=== PATIENT | female | born 1945 | race Caucasian/White ===

== ENCOUNTER 2017-01-13 07:48 | Inpatient (IN) | payer MEDICARE, OTHER ==
[2017-01-13] MEDS ORDERED: Sodium Chloride 0.9% 500 ML IV ONE (08:23)
[2017-01-13] MEDS ORDERED: Sodium Chloride 0.9% 10 ML Syringe FLUSH PRN (08:24)
--- NOTE | 2017-01-13 08:57 | EDM.PDOC ---
ED HPI RENAL/ - General Chief Complaint: Genitourinary Problem Stated Complaint: BLOOD IN URINE/CATH BAG Time Seen by Provider: 01/13/17 08:11 Source of Information: Reports: Patient, RN notes reviewed - History of Present Illness INITIAL COMMENTS - FREE TEXT/NARRATIVE: 71-year-old female comes in with hematuria. She does have an indwelling Feldman catheter status post aortic aneurysm repair 6 days ago. This was done endovascular with access right groin and both arms. She was discharged home 3 days ago and due to voiding difficulty while in the hospital discharged home with indwelling Feldman catheter. She states she does have some bladder irritation and occasional spasm with the catheter. She states she did have some chills yesterday. She arrives this morning with low-grade fever but she had not been aware of running fever. She has been drinking fluids okay. Appetite has been poor but starting to supervisor opening and picking a little bit. No major nausea no recent vomiting. No chest pain or difficulty breathing. She states she does have a chronic cough and has had that for about 2 months. She is a former smoker having just quit at about the time of her surgery. Cough is mostly nonproductive but occasionally some colored phlegm. - Related Data Allergies/ADRs: Allergies Allergy/AdvReac Type Severity Reaction Status Date / Time iodine Allergy Rash Verified 01/13/17 08:02 Home Meds: Home Meds Aspirin [[place] Aspirin] 81 mg PO DAILY 01/13/17 [History] Bisacodyl [Dulcolax] 10 mg RECTAL DAILY PRN 01/13/17 [History] Clopidogrel [Plavix] 75 mg PO DAILY 01/13/17 [History] Docusate Sodium [Colace] 100 - 300 mg PO DAILY PRN 01/13/17 [History] Lisinopril/Hydrochlorothiazide [Lisinopril-Hctz 10-12.5 mg Tab] 1 tab PO DAILY 01/13/17 [History] Pantoprazole [ProTONIX] 40 mg PO DAILY 01/13/17 [History] Ventolin Hfa. 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 Like I just lay in bed and think I don't care what gets done with me." - Infectious Disease History Infectious Disease History: Reports: Chicken pox, Measles, Mumps - Past Surgical History Cardiovascular Surgical History: Reports: Aneurysm Female Surgical History: Reports: Oophorectomy, Other (see below) Other Female Surgeries/Procedures: Patient also states "I think they took a fallopian tube or part of one too" Social & Family History - Family History Family Medical History: Noncontributory - Tobacco Use Smoking Status *Q: Former Smoker Years of Tobacco use: 55 Packs/Tins Daily: 2 Used Tobacco, but Quit: Yes Month Tobacco Last Used: December 2016 - Caffeine Use Caffeine Use: Reports: Coffee Caffeine Use Comment: Everyday - Recreational Drug Use Recreational Drug Use: No ED ROS GENERAL - Review of Systems Review Of Systems: See Below Constitutional: Reports: fever (Patient's low-grade fever on arrival to ED), chills HEENT: Denies: Sinus problem, Throat pain Respiratory: Reports: Cough, Sputum. Denies: Shortness of Breath, Wheezing, Pleuritic Chest Pain Cardiovascular: Denies: Chest pain GI/Abdominal: Reports: Abdominal pain (Mild postsurgical soreness). Denies: Vomiting : Reports: hematuria (Started early this morning and continues on arrival to ED), urinary retention (Patient has indwelling Feldman catheter) Musculoskeletal: Denies: back pain Neurological: Reports: Weakness (Mild generalized). Denies: Dizziness, Headache , Numbness, Tingling, Trouble Speaking ED EXAM, RENAL/ - Physical Exam Exam: See Below Exam Limited By: No limitations General Appearance: alert, no apparent distress Eye Exam: bilateral eye: PERRL Ears: normal external exam Nose: normal inspection Throat/Mouth: Normal inspection, Normal oropharynx Head: atraumatic. No: facial swelling Neck: supple, full range of motion Respiratory/Chest: no respiratory distress, lungs clear, normal breath sounds. No: rhonchi, wheezing Cardiovascular: regular rate, rhythm GI/Abdominal: soft, other (Very mild lower mid abdominal tenderness) Back Exam: No: CVA tenderness (L), CVA tenderness (R) Extremities: normal inspection. No: normal range of motion, pedal edema, leg pain Neurological: alert, oriented, no motor/sensory deficits Skin Exam: Warm, Dry, Normal color Course - Vital Signs Last Recorded V/S: Last Vital Signs Temp 100.3 F 01/13/17 07:53 Pulse 92 01/13/17 07:53 Resp 16 01/13/17 07:53 BP 138/66 01/13/17 07:53 Pulse Ox 100 01/13/17 07:53 - Orders/Labs/Meds Orders: Active Orders 24 hr Category Date Time Status Admission Status [Patient Status] [ADT] Routine ADT 01/13/17 12:21 Active Peripheral IV Care [RC] . DIRECTED Care 01/13/17 08:24 Active CULTURE BLOOD [BC] Stat Lab 01/13/17 08:40 Received CULTURE URINE [RM] Stat Lab 01/13/17 08:56 Received Sodium Chloride 0.9% [Normal Saline] 1,000 ml Med 01/13/17 10:15 Active IV ASDIRECTED Sodium Chloride 0.9% [Saline Flush] Med 01/13/17 08:24 Active 10 ml FLUSH ASDIRECTED PRN Peripheral IV Insertion Adult [OM.PC] Stat Oth 01/13/17 08:23 Ordered Medication Orders Sodium Chloride (Normal Saline) 1,000 mls @ 150 mls/hr IV ASDIRECTED MERVAT Last Admin: 01/13/17 10:17 Dose: 150 mls/hr Sodium Chloride (Saline Flush) 10 ml FLUSH ASDIRECTED PRN PRN Reason: Keep Vein Open Last Admin: 01/13/17 08:40 Dose: 10 ml Labs: Laboratory Tests 01/13/17 01/13/17 01/13/17 Range/Units 08:40 08:40 08:56 WBC 9.90 (3.98-10.04) K/mm3 RBC 2.78 L (3.98-5.22) M/mm3 Hgb 8.4 L (11.2-15.7) gm/L Hct 25.1 L (34.1-44.9) % MCV 90.3 (79.4-94.8) fl MCH 30.2 (25.6-32.2) pg MCHC 33.5 (32.2-35.5) g/dl RDW Std Deviation 40.5 (36.4-46.3) fL Plt Count 263 (182-369) K/mm3 MPV 10.3 (9.4-12.3) fl Neut % (Auto) 76.7 H (34.0-71.1) % Lymph % (Auto) 13.1 L (19.3-51.7) % [place] % (Auto) 6.9 (4.7-12.5) % Eos % (Auto) 2.4 (0.7-5.8) Baso % (Auto) 0.3 (0.1-1.2) % Neut # (Auto) 7.59 H (1.56-6.13) K/mm3 Lymph # (Auto) 1.30 (1.18-3.74) K/mm3 [place] # (Auto) 0.68 H (0.24-0.36) K/mm3 Eos # (Auto) 0.24 (0.04-0.36) K/mm3 Baso # (Auto) 0.03 (0.01-0.08) K/mm3 Sodium 137 (136-145) mEq/L Potassium 3.7 (3.5-5.1) mEq/L Chloride 100 (98-107) mEq/L Carbon Dioxide 25 (21-32) mEq/L Anion Gap 15.7 H (5-15) BUN 17 (7-18) mg/dL Creatinine 1.1 H (0.55-1.02) mg/dL Est Cr Clr Drug Dosing 32.72 mL/min Estimated GFR (MDRD) 49 (>60) mL/min BUN/Creatinine Ratio 15.5 (14-18) Glucose 108 (83-115) mg/dL Calcium 8.9 (8.5-10.1) mg/dL Total Bilirubin 0.5 (0.2-1.0) mg/dL AST 34 (15-37) U/L ALT 43 (14-59) U/L Alkaline Phosphatase 67 (46-116) U/L C-Reactive Protein 12.1 H* (<1.0) mg/dL Total Protein 6.7 (6.4-8.2) g/dl Albumin 2.8 L (3.4-5.0) g/dl Globulin 3.9 gm/dL Albumin/Globulin Ratio 0.7 L (1-2) Urine Color Red H (Yellow) Urine Appearance Cloudy H (Clear) Urine pH 7.0 (5.0-8.0) Ur Specific [place] 1.020 (1.005-1.030) Urine Protein 3+ H (Negative) Urine Glucose (UA) Negative (Negative) Urine Ketones Negative (Negative) Urine Occult Blood 3+ H (Negative) Urine Nitrite Positive H (Negative) Urine Bilirubin 1+ H (Negative) Urine Urobilinogen 1.0 (0.2-1.0) Ur Leukocyte Esterase 3+ H (Negative) Meds: Medications Generic Name Dose Route Start Last Admin Trade Name Freq PRN Reason Stop Dose Admin Sodium Chloride 1,000 mls @ 150 mls/hr 01/13/17 10:15 01/13/17 10:17 Normal Saline IV 150 mls/hr ASDIRECTED MERVAT Administration Sodium Chloride 10 ml 01/13/17 08:24 01/13/17 08:40 Saline Flush FLUSH 10 ml ASDIRECTED PRN Administration Keep Vein Open Discontinued Medications Generic Name Dose Route Start Last Admin Trade Name Freq PRN Reason Stop Dose Admin Sodium Chloride 500 mls @ 999 mls/hr 01/13/17 08:23 01/13/17 08:44 Normal Saline IV 01/13/17 08:53 999 mls/hr .BOLUS ONE Administration Ceftriaxone Sodium 1 gm/ 100 mls @ 200 mls/hr 01/13/17 10:07 01/13/17 10:30 Sodium Chloride IV 01/13/17 10:36 Not Given ONETIME ONE Ceftriaxone Sodium 1 gm/ 100 mls @ 200 mls/hr 01/13/17 10:18 01/13/17 10:28 Sodium Chloride IV 01/13/17 10:47 200 mls/hr ONETIME ONE Administration Departure - Departure Time of Disposition: 12:15 Disposition: Admitted As Inpatient 64 Condition: serious Clinical Impression: Pyelonephritis ED Communication - Discussed Case With (1) Discussed Case With (1): Admitting Provider (Dr Hobson, decision to admit at about 12:12.) - My Orders Last 24 Hours: My Active Orders 01/13/17 08:23 Peripheral IV Insertion Adult [OM.PC] Stat 01/13/17 08:24 Peripheral IV Care [RC] . DIRECTED Sodium Chloride 0.9% [Saline Flush] 10 ml FLUSH ASDIRECTED PRN 01/13/17 08:40 CULTURE BLOOD [BC] Stat 01/13/17 08:56 CULTURE URINE [RM] Stat 01/13/17 10:15 Sodium Chloride 0.9% [Normal Saline] 1,000 ml IV ASDIRECTED 01/13/17 12:21 Admission Status [Patient Status] [ADT] Routine - Assessment/Plan Last 24 Hours: My Active Orders 01/13/17 08:23 Peripheral IV Insertion Adult [OM.PC] Stat 01/13/17 08:24 Peripheral IV Care [RC] . DIRECTED Sodium Chloride 0.9% [Saline Flush] 10 ml FLUSH ASDIRECTED PRN 01/13/17 08:40 CULTURE BLOOD [BC] Stat 01/13/17 08:56 CULTURE URINE [RM] Stat 01/13/17 10:15 Sodium Chloride 0.9% [Normal Saline] 1,000 ml IV ASDIRECTED 01/13/17 12:21 Admission Status [Patient Status] [ADT] Routine
--- NOTE | 2017-01-13 09:19 | CR ---
Chest: Portable view of the chest was obtained. Comparison: Previous chest x-ray of 07/09/11. Heart size and mediastinum are normal. Lungs are clear. Bony structures are grossly intact. Surgical clips are seen within the abdomen. Impression: 1. Incidental findings. Nothing acute is identified on portable chest x-ray. Diagnostic code #2
[2017-01-13] MEDS ORDERED: cefTRIAXone 1 GM in Sodium Chloride 0.9% 100 ML IV ONE ×2 (10:07→10:18)
[2017-01-13] MEDS: Sodium Chloride 0.9% 1,000 ML IV SCH ×2 (10:17→19:28)
[2017-01-13] MEDS ORDERED: HYDROmorphone 0.5 MG/0.5 ML Syringe IVPUSH PRN (12:36)
[2017-01-13] MEDS ORDERED: Albuterol/Ipratropium 3.0-0.5 MG/3 ML Neb Soln NEB PRN (12:36)
[2017-01-13] MEDS ORDERED: Acetaminophen 325 MG Tab PO PRN (12:36)
[2017-01-13] MEDS ORDERED: Temazepam 15 MG Cap PO PRN (12:36)
[2017-01-13] MEDS ORDERED: Ondansetron 4 MG/2 ML SDV IV PRN (12:36)
[2017-01-13] MEDS ORDERED: LORazepam 2 MG/ML MDV IV PRN (12:36)
[2017-01-13] MEDS ORDERED: Promethazine 12.5 MG in Sodium Chloride 0.9% 50 ML IV PRN (12:36)
[2017-01-13] MEDS ORDERED: Bisacodyl 5 MG Tab PO PRN (12:36)
[2017-01-13] MEDS ORDERED: Polyethylene Glycol 3350 Powder 17 GM Packet PO PRN (12:36)
--- NOTE | 2017-01-13 12:36 | PCM.HP ---
H&P History of Present Illness - General Date of Service: 01/13/17 Admit Problem/Dx: Admission Diagnosis/Problem Admission Diagnosis/Problem Pyelonephritis Source of Information: Patient, Family, Provider, RN notes reviewed History Limitations: Reports: No limitations - History of Present Illness Initial Comments - Free Text/Narative: This is a 71 yo pleasant elderly white female with past medical hx/o HTN, HLD, RAD, Nicotine Dependence who comes in with complaints of acute onset of hematuria associated with fever, chills, mild abdominal pain and generalized weakness. Patient recently underwent aortic aneurysmal repair in [place]. She was discharged 3 days with bush catheter due to post operative urinary retention. Since then, she reports some bladder irritation and spasm associated with bush catheter. She was able to eat or drink. She denies any nausea or vomiting. She admits to chronic cough and she is an active heavy smoker. Her initial lab in ED shows CBC remarkable for HGb of 8.4, HCT of 25.1, and Neutrophils of 76.7%. Her chemistry is significant for AG of 15.7, Cr of 1.1, CRP of 12.1, and Albumin of 2.8. Her UA is pos for occult blood and +3 Protein also suggestive of UTI. Her CXR shows no acute abnormal findings. Patient is being admitted for Fever, UTI:Suspect Pyelonephritis, Hematuria, Post -Operative Anemia and Urinary Retention. She is full code. Abdomen Pain Score (Numeric/FACES): 3 - Related Data Allergies/Adverse Reactions: Allergies Allergy/AdvReac Type Severity Reaction Status Date / Time iodine Allergy Rash Verified 01/13/17 13:56 Home Medications: Home Meds Albuterol Sulfate [Proventil Hfa] 2 inh PO Q4H PRN 01/13/17 [History] Aspirin [[place] Aspirin] 81 mg PO DAILY 01/13/17 [History] Bisacodyl [Dulcolax] 10 mg RECTAL DAILY PRN 01/13/17 [History] Calcium Citrate/Vitamin D3 [Citracal + D Maximum [place]] 1 tab PO BID 01/13/17 [ History] Clopidogrel [Plavix] 75 mg PO DAILY 01/13/17 [History] Docusate Sodium [Colace] 100 - 300 mg PO DAILY PRN 01/13/17 [History] Fish Oil/[place]-3 Fatty Acids [Fish Oil 1,000 MG] 2,000 mg PO BID 01/13/17 [ History] Lisinopril/Hydrochlorothiazide [Lisinopril-Hctz 10-12.5 mg Tab] 1 tab PO DAILY 01/13/17 [History] Multivitamin [Daily Multiple Vitamin] 1 tab PO DAILY 01/13/17 [History] Pantoprazole [ProTONIX] 40 mg PO DAILY 01/13/17 [History] atorvaSTATin [Lipitor] 10 mg PO DAILY 01/13/17 [History] oxyCODONE HCl/Acetaminophen [oxyCODONE-Acetaminophen 5-325] 1 - 2 tab PO Q6HR PRN 01/13/17 [History] Past Medical History Cardiovascular History: Reports: Aneurysm, High cholesterol, Hypertension Respiratory History: Reports: Other (see below) Other Respiratory History: Patient is a smoker and so states she has a cough and a little SOB sometimes Gastrointestinal History: Reports: Other (see below) Other Gastrointestinal History: Hernia- unsure what kind 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 Like I just lay in bed and think I don't care what gets done with me." - Infectious Disease History Infectious Disease History: Reports: Chicken pox, Measles, Mumps - Past Surgical History Cardiovascular Surgical History: Reports: Aneurysm Female Surgical History: Reports: Oophorectomy, Other (see below) Other Female Surgeries/Procedures: Patient also states "I think they took a fallopian tube or part of one too" Social & Family History - Family History Family Medical History: Noncontributory - Tobacco Use Smoking Status *Q: Former Smoker Years of Tobacco use: 55 Packs/Tins Daily: 2 Used Tobacco, but Quit: Yes Month Tobacco Last Used: December 2016 - Caffeine Use Caffeine Use: Reports: Coffee Caffeine Use Comment: Everyday - Recreational Drug Use Recreational Drug Use: No H&P Review of Systems - Review of Systems: Review Of Systems: See Below General: Reports: fever, chills. Denies: weakness, fatigue HEENT: Reports: no symptoms Pulmonary: Reports: Cough, Sputum. Denies: Shortness of Breath Cardiovascular: Denies: chest pain, palpitations, dyspnea on exertion Gastrointestinal: Reports: Abdominal pain. Denies: Nausea, Vomiting Genitourinary: Reports: hematuria, retention, other (bush catheter this am but removed in ED) Exam - Exam Exam: See Below - Vital Signs Vital Signs: Last Vital Signs Temp 37.9 C 01/13/17 07:53 Pulse 92 01/13/17 07:53 Resp 16 01/13/17 07:53 BP 138/66 01/13/17 07:53 Pulse Ox 100 01/13/17 07:53 Weight: 54.885 kg - Exam General: alert, oriented, cooperative. No: mild distress HEENT: Conjunctiva clear, EACs clear, EOMI, Hearing intact, Mucosa moist & pink , Nares patent, Normal nasal septum, Posterior pharynx clear, Pupils equal, Pupils reactive, Other (Poor dentition) Neck: supple, trachea midline, 2+ carotid pulse wo bruit Lungs: Clear to auscultation, Normal respiratory effort Cardiovascular: regular rate, regular rhythm Abdomen: normal bowel sounds, soft. No: organomegaly (Female) Exam: Deferred Rectal (Female) Exam: Deferred Back Exam: normal inspection, decreased range of motion. No: CVA tenderness (L) , CVA tenderness (R) Extremities: normal inspection, normal pulses. No: clubbing, cyanosis, calf tenderness, edema Peripheral Pulses: 2+: posterior tibial (L), posterior tibial (R), dorsalis pedis (L), dorsalis pedis (R) Skin: warm, dry, intact Skin Alteration Location (drawings not to scale): 1 - minor wound/incision line 2 - minor wound/incision line 3 - incision line 4 - incision line 5 - Hematoma/ecchymoses Neuro Extensive - Mental Status: oriented x3, normal cognition, memory intact Neuro Extensive - Motor, Sensory, Reflexes: CN II-XII intact, normal gait Psychiatric: alert, normal affect, normal mood - Patient Data Result Diagrams: 01/13/17 08:40 01/13/17 08:40 *Q Meaningful Use (ADM) - VTE *Q VTE Criteria *Q: - Stroke *Q Stroke Criteria *Q: - AMI *Q AMI Criteria *Q: Problem List Initiated/Reviewed/Updated: Yes Orders Last 24hrs: Medication Orders Sodium Chloride (Normal Saline) 1,000 mls @ 150 mls/hr IV ASDIRECTED MERVAT Last Admin: 01/13/17 10:17 Dose: 150 mls/hr Sodium Chloride (Saline Flush) 10 ml FLUSH ASDIRECTED PRN PRN Reason: Keep Vein Open Last Admin: 01/13/17 08:40 Dose: 10 ml Assessment/Plan Comment:: Assessment/Plan: Acute: Fever - Post-Operative vs Intra-Abdominal Infection - CXR: shows no acute abnormal findings - IV Rocephin and Zosyn - Pending Blood Cultures Hematuria - Suspect: Traumatic Insertion of bush cath - Bush was put in placed on the day of discharge in [place] - Her bush was removed earlier today in ED - Hold off anticoags, continue anti-platelets - Will monitor Urinary Tract Infection - Suspected Pyelonephritis - Likely 2/2 Indwelling bush catheter - IV Rocephin and Zosyn for pharmacy to dose - UA Cx/Sx Post-Operative Urinary Retention - Possibly resolving - May need to re-place bush cath if she still symptomatic - Encourage patient to ambulated Post-Operative Anemia - Hgb is 8.4 - 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 - Significant hematoma/ecchymoses in the abdomen and pelvic region - Repeat lab later this after - Transfuse if indicated Status Post Abdominal Aortic Aneurysm Surgery -Stable Nicotine Dependence - Nicotine Patch daily Chronic: HTN HLD RAD Plan: Admit to Inpatient Routine AM Labs Resume Some Home Meds PT/OT consult SW/CM for d/c planning Additional orders as above Code status: 1
[2017-01-13] MEDS ORDERED: hydrALAZINE 20 MG/ML SDV IVPUSH PRN (12:48)
[2017-01-13] MEDS ORDERED: Bisacodyl 10 MG Supp RECTAL PRN (12:48)
[2017-01-13] MEDS ORDERED: Docusate Sodium 100 MG Cap PO PRN (12:48)
[2017-01-13] MEDS ORDERED: Metoprolol Tartrate 5 MG/5 ML SDV IVPUSH PRN (12:48)
[2017-01-13] MEDS ORDERED: Albuterol 6.7 GM Inhaler INH PRN (12:48)
[2017-01-13] MEDS ORDERED: Piperacillin/Tazobactam 4.5 GM in Sodium Chloride 0.9% 100 ML IV ONE (13:30)
--- NOTE | 2017-01-13 18:22 | PCM.SN ---
- Free Text/Narrative Note: Repeat Hgb shows 7.1 She is asymptomatic. Will repeat level sometime tonight. She may need blood transfusion considering she recently had an aortic aneurysm repair.
[2017-01-13] MEDS: Fish Oil/Omega-3 Fatty Acids 1 Gm Cap PO SCH (20:23)
[2017-01-13] MEDS: Saccharomyces Boulardii (Probiotic) 250 MG Cap PO SCH (20:24)
[2017-01-13] MEDS: Calcium Carbonate/Vitamin D3 1500 MG-200 Units Tab PO SCH (20:24)
[2017-01-13] MEDS: Docusate Sodium 100 MG Cap PO PRN (20:29)
[2017-01-13] MEDS ORDERED: Famotidine 20 MG Tab PO SCH (21:00)
[2017-01-13] MEDS: Piperacillin/Tazobactam 4.5 GM in Sodium Chloride 0.9% 100 ML IV SCH (21:37)
[2017-01-13] MEDS: Acetaminophen/HYDROcodone 325-5 MG Tab PO PRN (22:26)
[2017-01-14] MEDS: Sodium Chloride 0.9% 1,000 ML IV SCH ×3 (03:56→21:09)
[2017-01-14] MEDS: Piperacillin/Tazobactam 4.5 GM in Sodium Chloride 0.9% 100 ML IV SCH (06:33)
[2017-01-14] MEDS: Acetaminophen/HYDROcodone 325-5 MG Tab PO PRN ×2 (06:41→23:20)
--- NOTE | 2017-01-14 08:06 | PCM.PN ---
- General Info Date of Service: 01/14/17 Admission Dx/Problem (Free Text): Admission Diagnosis/Problem Admission Diagnosis/Problem Pyelonephritis Subjective Update: Follow Up Functional Status: Reports: pain controlled, tolerating diet, ambulating, urinating. Denies: new symptoms - Review of Systems General: Denies: Fever, Weakness, Fatigue, Malaise, Chills HEENT: Reports: no symptoms Pulmonary: Denies: shortness of breath Cardiovascular: Denies: Chest Pain, Palpitations, Dyspnea on Exertion Gastrointestinal: Denies: Abdominal pain, Nausea, Vomiting Genitourinary: Reports: retention Musculoskeletal: Reports: no symptoms Neurological: Denies: Confusion, Difficulty Walking, Weakness, Gait Disturbance Psychiatric: Denies: depression, anxiety, hallucinations Systems Review Comment:: Last evening her Hgb dropped to 7.0. Later in the evening, per her nurse, she looked pale and uncomfortable so decided for her to receive blood transfusions. This morning she was on her second bag. She feels pretty good and reports no new complaints. - Patient Data Vitals - most recent: Last Vital Signs Temp 36.6 C 01/14/17 07:25 Pulse 69 01/14/17 07:25 Resp 18 01/14/17 07:25 BP 125/58 L 01/14/17 07:25 Pulse Ox 96 01/14/17 07:24 Weight - most recent: 55.883 kg I&O - last 24 hours: Intake & Output 01/13/17 01/14/17 01/14/17 22:59 06:59 14:59 Intake Total 1056 700 0 Output Total 1000 3000 Balance 56 -2300 0 Lab Results last 24 hrs: Laboratory Results - last 24 hr 01/13/17 01/13/17 01/13/17 Range/Units 17:55 22:55 22:55 Hgb 7.1 L* 7.0 L* (11.2-15.7) gm/L Hct 21.7 L 21.0 L (34.1-44.9) % Blood Type B POSITIVE Gel Antibody Screen Negative Crossmatch See Detail Med Orders - Current: Current Medications Acetaminophen (Tylenol) 650 mg PO Q4H PRN PRN Reason: Pain (Mild 1-3)/fever Hydrocodone Bitart/Acetaminophen ([place] 325-5 Mg) 1 tab PO Q4H PRN PRN Reason: Pain (moderate 4-6) Last Admin: 01/14/17 06:41 Dose: 1 tab Albuterol (Proventil Hfa) 0 gm INH Q4H PRN PRN Reason: Wheezing Albuterol/Ipratropium (Duoneb 3.0-0.5 Mg/3 Ml) 3 ml NEB Q4H PRN PRN Reason: Shortness Of Breath/wheezing Aspirin (Halfprin) 81 mg PO DAILY [facility] Bisacodyl (Dulcolax) 5 mg PO DAILY PRN PRN Reason: Constipation Bisacodyl (Dulcolax) 10 mg RECTAL DAILY PRN PRN Reason: Constipation Calcium Carbonate (Calcium Carbonate/Vitamin D 1500 Mg-200 Unit) 1 tab PO BID [facility] Last Admin: 01/13/17 20:24 Dose: 1 tab Clopidogrel Bisulfate (Plavix) 75 mg PO DAILY [facility] Docusate Sodium (Colace) 100 mg PO BID PRN PRN Reason: Constipation Last Admin: 01/13/17 20:29 Dose: 100 mg Famotidine (Pepcid) 20 mg PO DAILY [facility] Fish Oil (Fish Oil) 2 gm PO BID [facility] Last Admin: 01/13/17 20:23 Dose: 2 gm Hydralazine HCl (Apresoline) 20 mg IVPUSH Q4H PRN PRN Reason: Hypertension Hydrochlorothiazide (Hydrochlorothiazide) 12.5 mg PO DAILY [facility] Hydromorphone HCl (Dilaudid) 0.25 mg IVPUSH Q2H PRN PRN Reason: Pain (severe 7-10) Sodium Chloride (Normal Saline) 1,000 mls @ 150 mls/hr IV ASDIRECTED [facility] Last Admin: 01/14/17 03:56 Dose: 150 mls/hr Ceftriaxone Sodium 1 gm/ (Sodium Chloride) 100 mls @ 200 mls/hr IV Q24H [facility] Piperacillin Sod/Tazobactam (Sod 4.5 gm/ Sodium Chloride) 100 mls @ 25 mls/hr IV Q8H [facility] Last Admin: 01/14/17 06:33 Dose: 25 mls/hr Lisinopril (Prinivil) 10 mg PO DAILY [facility] Lorazepam (Ativan) 0.5 mg IV Q6H PRN PRN Reason: Anxiety Magnesium Sulfate (Pharmacy To Dose - Magnesium Replacement) 1 dose .XX ASDIRECTED [facility] Metoprolol Tartrate (Lopressor) 5 mg IVPUSH Q4H PRN PRN Reason: Tachycardia Multivitamins (Thera) 1 each PO DAILY [facility] Ondansetron HCl (Zofran) 4 mg IV Q6H PRN PRN Reason: Nausea/Vomiting Polyethylene Glycol (Miralax) 17 gm PO DAILY PRN PRN Reason: Constipation Potassium Chloride (Pharmacy To Dose - Potassium Replacement) 1 dose .XX ASDIRECTED [facility] Saccharomyces Boulardii (Florastor) 250 mg PO BID [facility] Last Admin: 01/13/17 20:24 Dose: 250 mg Senna/Docusate Sodium (Senna Plus) 1 tab PO BID PRN PRN Reason: Constipation Simvastatin (Zocor) 10 mg PO DAILY [facility] Sodium Chloride (Saline Flush) 10 ml FLUSH ASDIRECTED PRN PRN Reason: Keep Vein Open Last Admin: 01/13/17 08:40 Dose: 10 ml Temazepam (Restoril) 15 mg PO BEDTIME PRN PRN Reason: Sleep Discontinued Medications Docusate Sodium (Colace) 100 - 300 mg PO DAILY PRN PRN Reason: Constipation Enoxaparin Sodium (Lovenox) 40 mg SUBCUT DAILY [facility] Famotidine (Pepcid) 20 mg PO BID [facility] Last Admin: 01/13/17 20:24 Dose: 20 mg Sodium Chloride (Normal Saline) 500 mls @ 999 mls/hr IV .BOLUS ONE Stop: 01/13/17 08:53 Last Admin: 01/13/17 08:44 Dose: 999 mls/hr Ceftriaxone Sodium 1 gm/ (Sodium Chloride) 100 mls @ 200 mls/hr IV ONETIME ONE Stop: 01/13/17 10:36 Last Admin: 01/13/17 10:30 Dose: Not Given Ceftriaxone Sodium 1 gm/ (Sodium Chloride) 100 mls @ 200 mls/hr IV ONETIME ONE Stop: 01/13/17 10:47 Last Admin: 01/13/17 10:28 Dose: 200 mls/hr Piperacillin Sod/Tazobactam (Sod 4.5 gm/ Sodium Chloride) 100 mls @ 200 mls/hr IV ONETIME ONE Stop: 01/13/17 13:59 Last Admin: 01/13/17 13:49 Dose: 200 mls/hr Promethazine HCl 12.5 mg/ (Sodium Chloride) 50.5 mls @ 100 mls/hr IV Q6H PRN PRN Reason: Nausea/Vomiting - Exam General: alert, oriented, cooperative, no acute distress HEENT: Pupils equal, Pupils reactive, EOMI, Mucous membr. moist/pink, Other ( poor dentition) Neck: supple, trachea midline, no JVD, no thyromegaly Lungs: Clear to auscultation, Normal respiratory effort Cardiovascular: Regular Rate, Regular Rhythm Abdomen: bowel sounds present, soft, no distension, tenderness. No: rigidity, rebound, guarding (Female) Exam: Deferred, Other (nO more indwelling bush catheter) Back Exam: normal inspection, decreased range of motion Peripheral Pulses: 2+: dorsalis pedis (L), dorsalis pedis (R) Skin: warm, dry, intact Neurological: no new focal deficit Psy/Mental Status: alert, normal affect, normal mood Physical Findings Comments:: She looks much better this am. - Problem List Review Problem List Initiated/Reviewed/Updated: Yes - My Orders Last 24 Hours: My Active Orders 01/13/17 12:36 Height and Weight [RC] 04 Up With Assistance [RC] ASDIRECTED Up ad Jhoana [RC] ASDIRECTED Acetaminophen [Tylenol] 650 mg PO Q4H PRN Acetaminophen/HYDROcodone [[place] 325-5 MG] 1 tab PO Q4H PRN Albuterol/Ipratropium [DuoNeb 3.0-0.5 MG/3 ML] 3 ml NEB Q4H PRN Bisacodyl [Dulcolax] 5 mg PO DAILY PRN Docusate Sodium [Colace] 100 mg PO BID PRN Docusate Sodium/Sennosides [Senna Plus] 1 tab PO BID PRN HYDROmorphone [Dilaudid] 0.25 mg IVPUSH Q2H PRN LORazepam [Ativan] 0.5 mg IV Q6H PRN Ondansetron [Zofran] 4 mg IV Q6H PRN Polyethylene Glycol 3350 [MiraLAX] 17 gm PO DAILY PRN Temazepam [Restoril] 15 mg PO BEDTIME PRN Resuscitation Status Routine 01/13/17 12:37 Oxygen Therapy [RC] PRN VTE/DVT Education [RC] 10,22 Vital Signs [RC] Q4HR 01/13/17 12:41 Intake and Output [RC] 04,16 01/13/17 12:45 RT Aerosol Therapy [RC] ASDIRECTED 01/13/17 12:46 Consult to Case Management [CONS] Routine Consult to Humane Agent [CONS] Routine Consult to Spiritual Care [CONS] Routine OT Evaluation and Treatment [CONS] Routine PT Evaluation and Treatment [CONS] Routine 01/13/17 12:48 Albuterol [Proventil HFA] 0 gm INH Q4H PRN Bisacodyl [Dulcolax] 10 mg RECTAL DAILY PRN Metoprolol Tartrate [Lopressor] 5 mg IVPUSH Q4H PRN hydrALAZINE [Apresoline] 20 mg IVPUSH Q4H PRN 01/13/17 13:00 Magnesium Rep Pharmacy to Dose [Pharmacy to Dose - Magnesium Replacement] 1 dose .XX ASDIRECTED Potassium Rep Pharmacy to Dose [Pharmacy to Dose - Potassium Replacement] 1 dose .XX ASDIRECTED 01/13/17 20:00 Urinary Catheter Assessment [RC] ASDIRECTED 01/13/17 21:00 Calcium Carbonate/Vitamin D3 [Calcium Carbonate/Vitamin D 1500 MG-200 Unit] 1 tab PO BID Fish Oil/[place]-3 Fatty Acids [Fish Oil] 2 gm PO BID Saccharomyces Boulardii [Florastor] 250 mg PO BID 01/13/17 21:30 Piperacillin/Tazobactam [Zosyn] 4.5 gm Sodium Chloride 0.9% [Normal Saline] 100 ml IV Q8H 01/13/17 22:55 PATIENT RETYPE [BBK] Routine 01/13/17 23:14 K Pad [Heat Therapy] [OM.PC] Routine 01/13/17 Dinner Regular Diet [DIET] 01/14/17 01:39 RED BLOOD CELLS LP [BBK] Routine TYPE AND SCREEN [BBK] Routine 01/14/17 01:48 Transfuse PRBC [Transfuse Red Blood Cells] [COMM] Routine 01/14/17 04:00 Insert Urinary Catheter [OM.PC] Q24H 01/14/17 05:11 BASIC METABOLIC PANEL,BMP [CHEM] AM C-REACTIVE PROTEIN [CHEM] AM CBC WITH AUTO DIFF [HEME] AM MAGNESIUM [CHEM] AM 01/14/17 09:00 Aspirin [Halfprin] 81 mg PO DAILY Clopidogrel [Plavix] 75 mg PO DAILY Famotidine [Pepcid] 20 mg PO DAILY Hydrochlorothiazide 12.5 mg PO DAILY Lisinopril [Prinivil] 10 mg PO DAILY Multivitamins,Therapeutic [Thera] 1 each PO DAILY Simvastatin [Zocor] 10 mg PO DAILY 01/14/17 10:30 cefTRIAXone [Rocephin] 1 gm Sodium Chloride 0.9% [Normal Saline] 100 ml IV Q24H 01/15/17 05:11 BASIC METABOLIC PANEL,BMP [CHEM] AM C-REACTIVE PROTEIN [CHEM] AM CBC WITH AUTO DIFF [HEME] AM MAGNESIUM [CHEM] AM 01/16/17 05:11 BASIC METABOLIC PANEL,BMP [CHEM] AM C-REACTIVE PROTEIN [CHEM] AM CBC WITH AUTO DIFF [HEME] AM MAGNESIUM [CHEM] AM 01/17/17 05:11 BASIC METABOLIC PANEL,BMP [CHEM] AM C-REACTIVE PROTEIN [CHEM] AM CBC WITH AUTO DIFF [HEME] AM MAGNESIUM [CHEM] AM - Plan Plan:: Assessment/Plan: Acute: Post-Operative Anemia - Hgb is 8.4 - 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 - Significant hematoma/ecchymoses in the abdomen and pelvic region - Repeat lab later this after - Currently transfusing Urinary Tract Infection - I do not feel Pyelonephritis this time: She has no CVA and looks good to have it - Likely 2/2 Indwelling bush catheter - IV Rocephin and Zosyn for pharmacy to dose - UA Cx: GNR Post-Operative Urinary Retention - Possibly resolving - May need to re-place bush cath if she still symptomatic - Has had a couple of straight cath last night - Encourage patient to continue to ambulate as tolerated Status Post Abdominal Aortic Aneurysm Surgery -Stable Nicotine Dependence - Nicotine Patch daily Resolved: S/p Fever - Post-Operative vs Intra-Abdominal Infection - CXR: shows no acute abnormal findings - IV Rocephin and Zosyn - Pending Blood Cultures S/p Hematuria - Suspect: Traumatic Insertion of bush cath - Bush was put in placed on the day of discharge in [place] - Her bush was removed earlier today in ED - Hold off anticoags, continue anti-platelets - Will monitor Chronic: HTN HLD RAD Plan: She is otherwise clinically stable Blood Culture so far is neagtive Continue current treatment Routine AM Labs Continue PT/OT SW/CM for d/c planning Additional orders as above Code status: 1
[2017-01-14] MEDS: Simvastatin 10 MG Tab PO SCH (08:26)
[2017-01-14] MEDS: Multivitamins,Therapeutic Tab PO SCH (08:26)
[2017-01-14] MEDS: Lisinopril 10 MG Tab PO SCH (08:26)
[2017-01-14] MEDS: Clopidogrel 75 MG Tab PO SCH ×2 (08:26→09:32)
[2017-01-14] MEDS: Saccharomyces Boulardii (Probiotic) 250 MG Cap PO SCH ×2 (08:26→21:05)
[2017-01-14] MEDS: Calcium Carbonate/Vitamin D3 1500 MG-200 Units Tab PO SCH ×2 (08:26→21:05)
[2017-01-14] MEDS: Famotidine 20 MG Tab PO SCH (08:26)
[2017-01-14] MEDS: Fish Oil/Omega-3 Fatty Acids 1 Gm Cap PO SCH ×2 (08:27→21:05)
[2017-01-14] MEDS: Aspirin 81 MG Tab.EC PO SCH (08:27)
[2017-01-14] MEDS: Hydrochlorothiazide 12.5 MG Cap PO SCH (08:27)
[2017-01-14] MEDS ORDERED: Enoxaparin 40 MG/0.4 ML Syringe SUBCUT SCH (09:00)
[2017-01-14] MEDS: Docusate Sodium 100 MG Cap PO PRN ×2 (10:09→21:05)
[2017-01-14] MEDS: Nicotine 21 MG/24 Hr Patch TRDERM SCH (10:09)
[2017-01-14] MEDS: cefTRIAXone 1 GM in Sodium Chloride 0.9% 100 ML IV SCH (10:21)
[2017-01-15] MEDS: Sodium Chloride 0.9% 1,000 ML IV SCH ×3 (07:03→23:15)
--- NOTE | 2017-01-15 07:34 | PCM.PN ---
- General Info Date of Service: 01/15/17 Admission Dx/Problem (Free Text): Admission Diagnosis/Problem Admission Diagnosis/Problem Pyelonephritis Subjective Update: Follow Up Functional Status: Reports: pain controlled, tolerating diet, ambulating, urinating. Denies: new symptoms - Review of Systems General: Denies: Fever, Weakness, Fatigue, Malaise, Chills, Night Sweats HEENT: Reports: no symptoms Pulmonary: Denies: shortness of breath Cardiovascular: Denies: Chest Pain, Palpitations, Dyspnea on Exertion Gastrointestinal: Denies: Abdominal pain, Nausea, Vomiting Genitourinary: Reports: retention Musculoskeletal: Reports: no symptoms Skin: Reports: no symptoms Neurological: Denies: Dizziness, Difficulty Walking, Weakness, Gait Disturbance Psychiatric: Denies: confusion, depression, mood lability, anxiety, agitation, hallucinations Systems Review Comment:: No overnight issues. She is still having urinary retention requiring routine straight cath. She is able to pee but not much. She feels pretty good. She has no new complaints. - Patient Data Vitals - most recent: Last Vital Signs Temp 36.3 C 01/15/17 05:50 Pulse 60 01/15/17 05:50 Resp 16 01/15/17 05:50 BP 125/65 01/15/17 05:50 Pulse Ox 98 01/15/17 05:50 Weight - most recent: 56.79 kg I&O - last 24 hours: Intake & Output 01/14/17 01/15/17 01/15/17 22:59 06:59 14:59 Intake Total 2720 4426 Output Total 950 1025 Balance 1770 3401 Lab Results last 24 hrs: Laboratory Results - last 24 hr 01/13/17 01/14/17 01/14/17 Range/Units 22:55 14:01 14:01 WBC 8.91 (3.98-10.04) K/mm3 RBC 3.68 L (3.98-5.22) M/mm3 Hgb 11.2 (11.2-15.7) gm/L Hct 32.6 L (34.1-44.9) % MCV 88.6 (79.4-94.8) fl MCH 30.4 (25.6-32.2) pg MCHC 34.4 (32.2-35.5) g/dl RDW Std Deviation 42.5 (36.4-46.3) fL Plt Count 242 (182-369) K/mm3 MPV 10.2 (9.4-12.3) fl Neut % (Auto) 63.7 (34.0-71.1) % Lymph % (Auto) 21.3 (19.3-51.7) % [place] % (Auto) 8.4 (4.7-12.5) % Eos % (Auto) 4.7 (0.7-5.8) Baso % (Auto) 0.3 (0.1-1.2) % Neut # (Auto) 5.67 (1.56-6.13) K/mm3 Lymph # (Auto) 1.90 (1.18-3.74) K/mm3 [place] # (Auto) 0.75 H (0.24-0.36) K/mm3 Eos # (Auto) 0.42 H (0.04-0.36) K/mm3 Baso # (Auto) 0.03 (0.01-0.08) K/mm3 Manual Slide Review Abnormal smear Sodium 142 (136-145) mEq/L Potassium 3.5 (3.5-5.1) mEq/L Chloride 107 (98-107) mEq/L Carbon Dioxide 25 (21-32) mEq/L Anion Gap 13.5 (5-15) BUN 13 (7-18) mg/dL Creatinine 1.1 H (0.55-1.02) mg/dL Est Cr Clr Drug Dosing 32.72 mL/min Estimated GFR (MDRD) 49 (>60) mL/min BUN/Creatinine Ratio 11.8 L (14-18) Glucose 106 (83-115) mg/dL Calcium 8.7 (8.5-10.1) mg/dL Magnesium 2.0 (1.8-2.4) mg/dl C-Reactive Protein 11.1 H* (<1.0) mg/dL Blood Type B POSITIVE Gel Antibody Screen Negative Crossmatch See Detail 01/15/17 01/15/17 Range/Units 05:15 05:15 WBC 7.05 (3.98-10.04) K/mm3 RBC 3.37 L (3.98-5.22) M/mm3 Hgb 10.3 L (11.2-15.7) gm/L Hct 30.0 L (34.1-44.9) % MCV 89.0 (79.4-94.8) fl MCH 30.6 (25.6-32.2) pg MCHC 34.3 (32.2-35.5) g/dl RDW Std Deviation 42.8 (36.4-46.3) fL Plt Count 226 (182-369) K/mm3 MPV 10.2 (9.4-12.3) fl Neut % (Auto) 56.6 (34.0-71.1) % Lymph % (Auto) 27.5 (19.3-51.7) % [place] % (Auto) 9.5 (4.7-12.5) % Eos % (Auto) 5.1 (0.7-5.8) Baso % (Auto) 0.3 (0.1-1.2) % Neut # (Auto) 3.99 (1.56-6.13) K/mm3 Lymph # (Auto) 1.94 (1.18-3.74) K/mm3 [place] # (Auto) 0.67 H (0.24-0.36) K/mm3 Eos # (Auto) 0.36 (0.04-0.36) K/mm3 Baso # (Auto) 0.02 (0.01-0.08) K/mm3 Manual Slide Review Sodium 144 (136-145) mEq/L Potassium 3.7 (3.5-5.1) mEq/L Chloride 111 H (98-107) mEq/L Carbon Dioxide 25 (21-32) mEq/L Anion Gap 11.7 (5-15) BUN 9 (7-18) mg/dL Creatinine 0.8 (0.55-1.02) mg/dL Est Cr Clr Drug Dosing 44.99 mL/min Estimated GFR (MDRD) > 60 (>60) mL/min BUN/Creatinine Ratio 11.3 L (14-18) Glucose 87 (83-115) mg/dL Calcium 8.6 (8.5-10.1) mg/dL Magnesium 1.9 (1.8-2.4) mg/dl C-Reactive Protein 6.6 H* (<1.0) mg/dL Blood Type Gel Antibody Screen Crossmatch Med Orders - Current: Current Medications Acetaminophen (Tylenol) 650 mg PO Q4H PRN PRN Reason: Pain (Mild 1-3)/fever Hydrocodone Bitart/Acetaminophen ([place] 325-5 Mg) 1 tab PO Q4H PRN PRN Reason: Pain (moderate 4-6) Last Admin: 01/14/17 23:20 Dose: 1 tab Albuterol (Proventil Hfa) 0 gm INH Q4H PRN PRN Reason: Wheezing Albuterol/Ipratropium (Duoneb 3.0-0.5 Mg/3 Ml) 3 ml NEB Q4H PRN PRN Reason: Shortness Of Breath/wheezing Aspirin (Halfprin) 81 mg PO DAILY [facility] Last Admin: 01/14/17 08:27 Dose: 81 mg Bisacodyl (Dulcolax) 5 mg PO DAILY PRN PRN Reason: Constipation Bisacodyl (Dulcolax) 10 mg RECTAL DAILY PRN PRN Reason: Constipation Calcium Carbonate (Calcium Carbonate/Vitamin D 1500 Mg-200 Unit) 1 tab PO BID [facility] Last Admin: 01/14/17 21:05 Dose: 1 tab Clopidogrel Bisulfate (Plavix) 75 mg PO DAILY [facility] Last Admin: 01/14/17 09:32 Dose: 75 mg Docusate Sodium (Colace) 100 mg PO BID PRN PRN Reason: Constipation Last Admin: 01/14/17 21:05 Dose: 100 mg Famotidine (Pepcid) 20 mg PO DAILY [facility] Last Admin: 01/14/17 08:26 Dose: 20 mg Fish Oil (Fish Oil) 2 gm PO BID [facility] Last Admin: 01/14/17 21:05 Dose: 2 gm Hydralazine HCl (Apresoline) 20 mg IVPUSH Q4H PRN PRN Reason: Hypertension Hydrochlorothiazide (Hydrochlorothiazide) 12.5 mg PO DAILY [facility] Last Admin: 01/14/17 08:27 Dose: 12.5 mg Hydromorphone HCl (Dilaudid) 0.25 mg IVPUSH Q2H PRN PRN Reason: Pain (severe 7-10) Sodium Chloride (Normal Saline) 1,000 mls @ 150 mls/hr IV ASDIRECTED [facility] Last Admin: 01/15/17 07:03 Dose: 150 mls/hr Ceftriaxone Sodium 1 gm/ (Sodium Chloride) 100 mls @ 200 mls/hr IV Q24H [facility] Last Admin: 01/14/17 10:21 Dose: 200 mls/hr Lisinopril (Prinivil) 10 mg PO DAILY [facility] Last Admin: 01/14/17 08:26 Dose: 10 mg Lorazepam (Ativan) 0.5 mg IV Q6H PRN PRN Reason: Anxiety Magnesium Oxide (Magnesium Oxide) 400 mg PO DAILY [facility] Magnesium Sulfate (Pharmacy To Dose - Magnesium Replacement) 1 dose .XX ASDIRECTED [facility] Metoprolol Tartrate (Lopressor) 5 mg IVPUSH Q4H PRN PRN Reason: Tachycardia Miscellaneous Information (Remove Patch) 1 ea TRDERM DAILY [facility] Multivitamins (Thera) 1 each PO DAILY [facility] Last Admin: 01/14/17 08:26 Dose: 1 each Nicotine (Habitrol) 21 mg TRDERM DAILY [facility] Last Admin: 01/14/17 10:09 Dose: 21 mg Ondansetron HCl (Zofran) 4 mg IV Q6H PRN PRN Reason: Nausea/Vomiting Polyethylene Glycol (Miralax) 17 gm PO DAILY PRN PRN Reason: Constipation Potassium Chloride (Pharmacy To Dose - Potassium Replacement) 1 dose .XX ASDIRECTED [facility] Saccharomyces Boulardii (Florastor) 250 mg PO BID [facility] Last Admin: 01/14/17 21:05 Dose: 250 mg Senna/Docusate Sodium (Senna Plus) 1 tab PO BID PRN PRN Reason: Constipation Simvastatin (Zocor) 10 mg PO DAILY [facility] Last Admin: 01/14/17 08:26 Dose: 10 mg Sodium Chloride (Saline Flush) 10 ml FLUSH ASDIRECTED PRN PRN Reason: Keep Vein Open Last Admin: 01/13/17 08:40 Dose: 10 ml Temazepam (Restoril) 15 mg PO BEDTIME PRN PRN Reason: Sleep Last Admin: 01/14/17 21:06 Dose: 15 mg Discontinued Medications Docusate Sodium (Colace) 100 - 300 mg PO DAILY PRN PRN Reason: Constipation Enoxaparin Sodium (Lovenox) 40 mg SUBCUT DAILY [facility] Famotidine (Pepcid) 20 mg PO BID [facility] Last Admin: 01/13/17 20:24 Dose: 20 mg Sodium Chloride (Normal Saline) 500 mls @ 999 mls/hr IV .BOLUS ONE Stop: 01/13/17 08:53 Last Admin: 01/13/17 08:44 Dose: 999 mls/hr Ceftriaxone Sodium 1 gm/ (Sodium Chloride) 100 mls @ 200 mls/hr IV ONETIME ONE Stop: 01/13/17 10:36 Last Admin: 01/13/17 10:30 Dose: Not Given Ceftriaxone Sodium 1 gm/ (Sodium Chloride) 100 mls @ 200 mls/hr IV ONETIME ONE Stop: 01/13/17 10:47 Last Admin: 01/13/17 10:28 Dose: 200 mls/hr Piperacillin Sod/Tazobactam (Sod 4.5 gm/ Sodium Chloride) 100 mls @ 200 mls/hr IV ONETIME ONE Stop: 01/13/17 13:59 Last Admin: 01/13/17 13:49 Dose: 200 mls/hr Promethazine HCl 12.5 mg/ (Sodium Chloride) 50.5 mls @ 100 mls/hr IV Q6H PRN PRN Reason: Nausea/Vomiting Piperacillin Sod/Tazobactam (Sod 4.5 gm/ Sodium Chloride) 100 mls @ 25 mls/hr IV Q8H [facility] Last Admin: 01/14/17 06:33 Dose: 25 mls/hr - Exam General: alert, oriented, cooperative, no acute distress. No: mild distress HEENT: Pupils equal, Pupils reactive, EOMI, Mucous membr. moist/pink, Other ( poor dentition) Neck: supple, trachea midline, no JVD, no thyromegaly Lungs: Clear to auscultation, Normal respiratory effort Cardiovascular: Regular Rate, Regular Rhythm Abdomen: bowel sounds present, soft, no distension, tenderness (mild). No: rigidity, rebound, guarding, CVA tenderness (Female) Exam: Deferred Back Exam: normal inspection, decreased range of motion. No: CVA tenderness (L) , CVA tenderness (R) Extremities: no edema, normal pulses, no tenderness/swelling, no clubbing, no cyanosis, no calf tenderness Peripheral Pulses: 2+: posterior tibial (L), posterior tibial (R), dorsalis pedis (L), dorsalis pedis (R) Skin: warm, dry, intact Wound/Incisions: healing well Neurological: no new focal deficit Psy/Mental Status: alert, normal affect, normal mood - Problem List Review Problem List Initiated/Reviewed/Updated: Yes - My Orders Last 24 Hours: My Active Orders 01/14/17 09:00 Aspirin [Halfprin] 81 mg PO DAILY Clopidogrel [Plavix] 75 mg PO DAILY Famotidine [Pepcid] 20 mg PO DAILY Hydrochlorothiazide 12.5 mg PO DAILY Lisinopril [Prinivil] 10 mg PO DAILY Multivitamins,Therapeutic [Thera] 1 each PO DAILY Simvastatin [Zocor] 10 mg PO DAILY 01/14/17 09:45 Nicotine [Habitrol] 21 mg TRDERM DAILY 01/14/17 10:30 cefTRIAXone [Rocephin] 1 gm Sodium Chloride 0.9% [Normal Saline] 100 ml IV Q24H 01/15/17 09:00 Magnesium Oxide 400 mg PO DAILY Remove Patch 1 ea TRDERM DAILY 01/16/17 05:11 BASIC METABOLIC PANEL,BMP [CHEM] AM C-REACTIVE PROTEIN [CHEM] AM CBC WITH AUTO DIFF [HEME] AM MAGNESIUM [CHEM] AM 01/17/17 05:11 BASIC METABOLIC PANEL,BMP [CHEM] AM C-REACTIVE PROTEIN [CHEM] AM CBC WITH AUTO DIFF [HEME] AM MAGNESIUM [CHEM] AM - Plan Plan:: Assessment/Plan: Acute: S/p Post-Operative Anemia - Hgb is 8.4--> 10.3 now - 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 - Significant hematoma/ecchymoses in the abdomen and pelvic region - S/p 2 units of PRBC transfusion Urinary Tract Infection - I do not feel Pyelonephritis this time: She has no CVA and looks good to have it - Likely 2/2 Indwelling bush catheter - UA Cx: E. coli sensitive to Rocephin - Continue IV Rocephin Post-Operative Urinary Retention - Unchanged - May need to re-place bush cath if she still symptomatic - Has had a couple of straight cath last night - Encourage patient to continue to ambulate as tolerated - She still requires routine straight catheter - She is not getting anti-cholinergics - We will try bethanechol for now - She needs urodynamic study and or possible cystostocopy Status Post Abdominal Aortic Aneurysm Surgery -Stable Nicotine Dependence - Nicotine Patch daily Resolved: S/p Fever - Post-Operative vs Intra-Abdominal Infection - CXR: shows no acute abnormal findings - IV Rocephin and Zosyn - Pending Blood Cultures S/p Hematuria - Suspect: Traumatic Insertion of bush cath - Bush was put in placed on the day of discharge in [place] - Her bush was removed earlier today in ED - Hold off anticoags, continue anti-platelets - Will monitor Chronic: HTN HLD RAD Plan: She remains stable She ambulated a lot down the kim Continue current treatment Routine AM Labs SW/CM for d/c planning If no improvement with her urinary retention with medication, we might just have to put bush back in until she sees the specialist Additional orders as above Code status: 1 Possible d/c in AM
[2017-01-15] MEDS: Acetaminophen/HYDROcodone 325-5 MG Tab PO PRN (07:57)
[2017-01-15] MEDS ORDERED: Magnesium Oxide 400 MG Tab PO SCH (09:00)
[2017-01-15] MEDS: Multivitamins,Therapeutic Tab PO SCH (10:15)
[2017-01-15] MEDS: Saccharomyces Boulardii (Probiotic) 250 MG Cap PO SCH ×2 (10:15→20:21)
[2017-01-15] MEDS: Fish Oil/Omega-3 Fatty Acids 1 Gm Cap PO SCH ×2 (10:15→20:21)
[2017-01-15] MEDS: Nicotine 21 MG/24 Hr Patch TRDERM SCH (10:15)
[2017-01-15] MEDS: Aspirin 81 MG Tab.EC PO SCH (10:16)
[2017-01-15] MEDS: Simvastatin 10 MG Tab PO SCH (10:16)
[2017-01-15] MEDS: Hydrochlorothiazide 12.5 MG Cap PO SCH (10:16)
[2017-01-15] MEDS: Calcium Carbonate/Vitamin D3 1500 MG-200 Units Tab PO SCH ×2 (10:16→20:20)
[2017-01-15] MEDS: Lisinopril 10 MG Tab PO SCH (10:16)
[2017-01-15] MEDS: Famotidine 20 MG Tab PO SCH (10:16)
[2017-01-15] MEDS: cefTRIAXone 1 GM in Sodium Chloride 0.9% 100 ML IV SCH (10:17)
[2017-01-15] MEDS: Clopidogrel 75 MG Tab PO SCH (10:17)
--- NOTE | 2017-01-15 19:02 | PCM.SN ---
- Free Text/Narrative Note: Bethanicol 20mg po x1 was given at 1330 and by 1430 she voided 100 ml and bladder scan show 831 ml and at that straight for 1000 ml. Patient neds to to have bush catheter due to severe urinary retention.
[2017-01-15] MEDS: Docusate Sodium 100 MG Cap PO PRN (20:21)
[2017-01-16] MEDS: Acetaminophen/HYDROcodone 325-5 MG Tab PO PRN ×2 (01:38→09:24)
[2017-01-16] MEDS: Sodium Chloride 0.9% 1,000 ML IV SCH (05:59)
--- NOTE | 2017-01-16 07:04 | PCM.DCSUM1 ---
Discharge Summary - Hospital Course Brief History: This is a 71 yo pleasant elderly white female with past medical hx/o HTN, HLD, RAD, Nicotine Dependence who comes in with complaints of acute onset of hematuria associated with fever, chills, mild abdominal pain and generalized weakness; was admitted for UTI and Urinary Retention. - Discharge Data Discharge Date: 01/16/17 Discharge Disposition: Home, Self-Care 01 Condition: Good - Discharge Diagnosis/Problem(s) (1) UTI (urinary tract infection) SNOMED Code(s): 48246849 ICD Code: N39.0 - URINARY TRACT INFECTION, SITE NOT SPECIFIED Status: Acute Current Visit: Yes Qualifiers: Urinary tract infection type: catheter-associated UTI Indwelling urinary catheter type: indwelling urethral catheter Encounter type: initial encounter Qualified Code(s): T83.511A - Infection and inflammatory reaction due to indwelling urethral catheter, initial encounter; N39.0 - Urinary tract infection , site not specified (2) Anemia SNOMED Code(s): 628604956 ICD Code: D64.9 - ANEMIA, UNSPECIFIED Status: Resolved Current Visit: Yes Qualifiers: Anemia type: iron deficiency Iron deficiency anemia type: other iron deficiency Qualified Code(s): D50.8 - Other iron deficiency anemias (3) Hematuria due to cystitis SNOMED Code(s): 313963904045193 ICD Code: N30.91 - CYSTITIS, UNSPECIFIED WITH HEMATURIA Status: Acute Current Visit: Yes (4) Postoperative urinary retention SNOMED Code(s): 774815620 ICD Code: N99.89 - OTH POSTPROCEDURAL COMPLICATIONS AND DISORDERS OF SYS; R33.8 - OTHER RETENTION OF URINE Status: Acute Current Visit: Yes (5) Status post abdominal aortic aneurysm (AAA) repair SNOMED Code(s): 722901540 ICD Code: Z98.890 - OTHER SPECIFIED POSTPROCEDURAL STATES; Z86.79 - PERSONAL HISTORY OF OTHER DISEASES OF THE CIRCULATORY SYSTEM Status: Inactive Current Visit: Yes (6) Nicotine dependence SNOMED Code(s): 60087230 ICD Code: F17.200 - NICOTINE DEPENDENCE, UNSPECIFIED, UNCOMPLICATED Status : Acute Current Visit: Yes Qualifiers: Nicotine product type: cigarettes Substance use status: uncomplicated Qualified Code(s): F17.210 - Nicotine dependence, cigarettes, uncomplicated - Patient Summary/Data Operative Procedure(s) Performed: None Complications: None Consults: Consultations 01/13/17 12:46 Consult to Case Management [CONS] Routine Consult to Movie Actor [CONS] Routine Consult to Spiritual Care [CONS] Routine OT Evaluation and Treatment [CONS] Routine PT Evaluation and Treatment [CONS] Routine Hospital Course: Patient was primarily admitted for Catheter Related UTI. Patient recently underwent A3 repair in [place] and she developed post-operative urinary retention on the day of discharge. She presented to us with complaints of fever associated with hematuria and wad found to have UTI. Her UA grew E. coli but her blood grew nothing. She was given intravenous antibiotic and she responded well to this treatment. Patient has done fairly well since this admission. However her hospital course was complicated by post-operative anemia. She became symptomatic when her Hgb dropped to 7.0. But she received 2 units of PRBCs to resolve her symptoms. Her Hgb remains stable since transfusion and no active bleed observed throughout her hospital stay. As for her urinary retention, we tried conservative measures and medication to resolve her bladder dysfunction but w/o any success. She ambulated many times and medications with anti-cholinergic properties were all held on this admission. Patient came in with indwelling bush catheter, this was removed during admission but we ended up putting a new one in since she was still unable to adequately empty her bladder. We felt she would not do well leaving in the hospital w/o it. However, she has been scheduled to a specialist to further evaluation i.e. urodynamic testing and or possible cystoscopy. Patient is now ready for discharge. She will leave here with additional course of oral antibiotic to complete her treatment. She was advised to keep all her appointments as scheduled. She was further advised to call her PCP for any questions or concerns related to her franny. Patient expressed understanding and in agreement with the plans as discussed above. All questions were answered. - Patient Instructions Diet: Usual Diet as Tolerated Activity: As Tolerated Driving: May Drive Today Showering/Bathing: May Shower Notify Provider of: Fever, Increased Pain, Swelling and Redness, Drainage, Nausea and/or Vomiting Other/Special Instructions: - Please take all your medications as directed. - Keep all your appointments as initially scheduled. - If you have any questions or concerns call you doctor. If you are unable to reach her, go to the nearest medical facility to seek immediate care. - Discharge Plan Prescriptions/Med Rec: Ciprofloxacin HCl [Cipro] 500 mg PO DAILY #4 tablet Home Medications: Home Meds Albuterol Sulfate [Proventil Hfa] 2 inh PO Q4H PRN 01/13/17 [History] Aspirin [[place] Aspirin] 81 mg PO DAILY 01/13/17 [History] Bisacodyl [Dulcolax] 10 mg RECTAL DAILY PRN 01/13/17 [History] Calcium Citrate/Vitamin D3 [Citracal + D Maximum Caplet] 1 tab PO BID 01/13/17 [ History] Clopidogrel [Plavix] 75 mg PO DAILY 01/13/17 [History] Docusate Sodium [Colace] 100 - 300 mg PO DAILY PRN 01/13/17 [History] Fish Oil/Ione-3 Fatty Acids [Fish Oil 1,000 MG] 2,000 mg PO BID 01/13/17 [ History] Lisinopril/Hydrochlorothiazide [Lisinopril-Hctz 10-12.5 mg Tab] 1 tab PO DAILY 01/13/17 [History] Multivitamin [Daily Multiple Vitamin] 1 tab PO DAILY 01/13/17 [History] Pantoprazole [ProTONIX] 40 mg PO DAILY 01/13/17 [History] atorvaSTATin [Lipitor] 10 mg PO DAILY 01/13/17 [History] oxyCODONE HCl/Acetaminophen [oxyCODONE-Acetaminophen 5-325] 1 - 2 tab PO Q6HR PRN 01/13/17 [History] Ciprofloxacin HCl [Cipro] 500 mg PO DAILY #4 tablet 01/16/17 [Rx] Patient Handouts: Smoking Cessation, Tips for Success, [id number], Smoking Hazards, Pyelonephritis, Adult, [id number], Urinary Tract Infection, Adult, Acute Urinary Retention, Female, [id number] Forms: ED Department Discharge Referrals: Coco Fuentes NP [Primary Care Provider] - - Discharge Summary/Plan Comment DC Time >30 min.: Yes (40 mins) Discharge Summary/Plan Comment: Discharge to Home - General Info Date of Service: 01/16/17 Admission Dx/Problem (Free Text: Admission Diagnosis/Problem Admission Diagnosis/Problem Pyelonephritis Subjective Update: Follow Up Functional Status: Reports: pain controlled, tolerating diet, ambulating, urinating. Denies: new symptoms - Review of Systems General: Denies: Fever, Chills HEENT: Reports: no symptoms Pulmonary: Denies: shortness of breath Cardiovascular: Denies: Chest Pain, Palpitations, Dyspnea on Exertion Gastrointestinal: Denies: Abdominal pain, Decreased appetite, Diarrhea, Nausea, Vomiting Genitourinary: Reports: retention Musculoskeletal: Reports: no symptoms Skin: Denies: cyanosis, rash Neurological: Denies: Confusion, Seizure, Difficulty Walking, Weakness, Gait Disturbance Psychiatric: Denies: confusion, anxiety, hallucinations Systems Review Comment: No overnight or acute issues. She is doing relatively. She she has no new complaints. - Patient Data Vitals - Most Recent: Last Vital Signs Temp 36.4 C 01/16/17 04:27 Pulse 65 01/16/17 04:27 Resp 16 01/16/17 04:27 BP 135/63 01/16/17 04:27 Pulse Ox 94 L 01/16/17 04:39 Weight - Most Recent: 57.561 kg I&O - Last 24 hours: Intake & Output 01/15/17 01/15/17 01/16/17 14:59 22:59 06:59 Intake Total 225 800 700 Output Total 1100 2300 1050 Balance -875 -1500 -350 Lab Results - Last 24 hrs: Laboratory Results - last 24 hr 01/15/17 Range/Units 05:15 Sodium 144 (136-145) mEq/L Potassium 3.7 (3.5-5.1) mEq/L Chloride 111 H (98-107) mEq/L Carbon Dioxide 25 (21-32) mEq/L Anion Gap 11.7 (5-15) BUN 9 (7-18) mg/dL Creatinine 0.8 (0.55-1.02) mg/dL Est Cr Clr Drug Dosing 44.99 mL/min Estimated GFR (MDRD) > 60 (>60) mL/min BUN/Creatinine Ratio 11.3 L (14-18) Glucose 87 (83-115) mg/dL Calcium 8.6 (8.5-10.1) mg/dL Magnesium 1.9 (1.8-2.4) mg/dl C-Reactive Protein 6.6 H* (<1.0) mg/dL Med Orders - Current: Current Medications Acetaminophen (Tylenol) 650 mg PO Q4H PRN PRN Reason: Pain (Mild 1-3)/fever Hydrocodone Bitart/Acetaminophen ([place] 325-5 Mg) 1 tab PO Q4H PRN PRN Reason: Pain (moderate 4-6) Last Admin: 01/16/17 01:38 Dose: 1 tab Albuterol (Proventil Hfa) 0 gm INH Q4H PRN PRN Reason: Wheezing Albuterol/Ipratropium (Duoneb 3.0-0.5 Mg/3 Ml) 3 ml NEB Q4H PRN PRN Reason: Shortness Of Breath/wheezing Aspirin (Halfprin) 81 mg PO DAILY [facility] Last Admin: 01/15/17 10:16 Dose: 81 mg Bethanechol Chloride (Urecholine) 20 mg PO TID [facility] Last Admin: 01/15/17 20:25 Dose: 20 mg Bisacodyl (Dulcolax) 5 mg PO DAILY PRN PRN Reason: Constipation Bisacodyl (Dulcolax) 10 mg RECTAL DAILY PRN PRN Reason: Constipation Calcium Carbonate (Calcium Carbonate/Vitamin D 1500 Mg-200 Unit) 1 tab PO BID [facility] Last Admin: 01/15/17 20:20 Dose: 1 tab Clopidogrel Bisulfate (Plavix) 75 mg PO DAILY [facility] Last Admin: 01/15/17 10:17 Dose: 75 mg Docusate Sodium (Colace) 100 mg PO BID PRN PRN Reason: Constipation Last Admin: 01/15/17 20:21 Dose: 100 mg Famotidine (Pepcid) 20 mg PO DAILY [facility] Last Admin: 01/15/17 10:16 Dose: 20 mg Fish Oil (Fish Oil) 2 gm PO BID [facility] Last Admin: 01/15/17 20:21 Dose: 2 gm Hydralazine HCl (Apresoline) 20 mg IVPUSH Q4H PRN PRN Reason: Hypertension Last Admin: 01/15/17 21:16 Dose: 20 mg Hydrochlorothiazide (Hydrochlorothiazide) 12.5 mg PO DAILY [facility] Last Admin: 01/15/17 10:16 Dose: 12.5 mg Hydromorphone HCl (Dilaudid) 0.25 mg IVPUSH Q2H PRN PRN Reason: Pain (severe 7-10) Sodium Chloride (Normal Saline) 1,000 mls @ 150 mls/hr IV ASDIRECTED [facility] Last Admin: 01/16/17 05:59 Dose: 150 mls/hr Ceftriaxone Sodium 1 gm/ (Sodium Chloride) 100 mls @ 200 mls/hr IV Q24H [facility] Last Admin: 01/15/17 10:17 Dose: 200 mls/hr Lisinopril (Prinivil) 10 mg PO DAILY [facility] Last Admin: 01/15/17 10:16 Dose: 10 mg Lorazepam (Ativan) 0.5 mg IV Q6H PRN PRN Reason: Anxiety Magnesium Oxide (Magnesium Oxide) 400 mg PO DAILY [facility] Last Admin: 01/15/17 10:16 Dose: 400 mg Magnesium Sulfate (Pharmacy To Dose - Magnesium Replacement) 1 dose .XX ASDIRECTED [facility] Metoprolol Tartrate (Lopressor) 5 mg IVPUSH Q4H PRN PRN Reason: Tachycardia Miscellaneous Information (Remove Patch) 1 ea TRDERM DAILY [facility] Last Admin: 01/15/17 10:17 Dose: 1 ea Multivitamins (Thera) 1 each PO DAILY [facility] Last Admin: 01/15/17 10:15 Dose: 1 each Nicotine (Habitrol) 21 mg TRDERM DAILY [facility] Last Admin: 01/15/17 10:15 Dose: 21 mg Ondansetron HCl (Zofran) 4 mg IV Q6H PRN PRN Reason: Nausea/Vomiting Polyethylene Glycol (Miralax) 17 gm PO DAILY PRN PRN Reason: Constipation Potassium Chloride (Pharmacy To Dose - Potassium Replacement) 1 dose .XX ASDIRECTED [facility] Saccharomyces Boulardii (Florastor) 250 mg PO BID [facility] Last Admin: 01/15/17 20:21 Dose: 250 mg Senna/Docusate Sodium (Senna Plus) 1 tab PO BID PRN PRN Reason: Constipation Simvastatin (Zocor) 10 mg PO DAILY [facility] Last Admin: 01/15/17 10:16 Dose: 10 mg Sodium Chloride (Saline Flush) 10 ml FLUSH ASDIRECTED PRN PRN Reason: Keep Vein Open Last Admin: 01/13/17 08:40 Dose: 10 ml Temazepam (Restoril) 15 mg PO BEDTIME PRN PRN Reason: Sleep Last Admin: 01/14/17 21:06 Dose: 15 mg Discontinued Medications Bethanechol Chloride (Urecholine) 10 mg PO TID [facility] Docusate Sodium (Colace) 100 - 300 mg PO DAILY PRN PRN Reason: Constipation Enoxaparin Sodium (Lovenox) 40 mg SUBCUT DAILY [facility] Famotidine (Pepcid) 20 mg PO BID [facility] Last Admin: 01/13/17 20:24 Dose: 20 mg Sodium Chloride (Normal Saline) 500 mls @ 999 mls/hr IV .BOLUS ONE Stop: 01/13/17 08:53 Last Admin: 01/13/17 08:44 Dose: 999 mls/hr Ceftriaxone Sodium 1 gm/ (Sodium Chloride) 100 mls @ 200 mls/hr IV ONETIME ONE Stop: 01/13/17 10:36 Last Admin: 01/13/17 10:30 Dose: Not Given Ceftriaxone Sodium 1 gm/ (Sodium Chloride) 100 mls @ 200 mls/hr IV ONETIME ONE Stop: 01/13/17 10:47 Last Admin: 01/13/17 10:28 Dose: 200 mls/hr Piperacillin Sod/Tazobactam (Sod 4.5 gm/ Sodium Chloride) 100 mls @ 200 mls/hr IV ONETIME ONE Stop: 01/13/17 13:59 Last Admin: 01/13/17 13:49 Dose: 200 mls/hr Promethazine HCl 12.5 mg/ (Sodium Chloride) 50.5 mls @ 100 mls/hr IV Q6H PRN PRN Reason: Nausea/Vomiting Piperacillin Sod/Tazobactam (Sod 4.5 gm/ Sodium Chloride) 100 mls @ 25 mls/hr IV Q8H [facility] Last Admin: 01/14/17 06:33 Dose: 25 mls/hr - Exam General: Reports: alert, oriented, cooperative, no acute distress HEENT: Reports: Pupils equal, Pupils reactive, EOMI, Mucous membr. moist/pink, Other (poor dentition) Neck: Reports: supple, trachea midline, no thyromegaly Lungs: Reports: Clear to auscultation, Normal respiratory effort Cardiovascular: Reports: Regular Rhythm Abdomen: Reports: bowel sounds present, soft, no tenderness, no distension (Female) Exam: Other (indwelling bush catheter) Rectal (Female) Exam: Deferred Back Exam: Reports: normal inspection, decreased range of motion Extremities: Reports: no edema, normal pulses, no tenderness/swelling, no clubbing, no cyanosis, no calf tenderness Skin: Reports: warm, dry, intact Wound/Incisions: Reports: healing well, no drainage Neurological: Reports: no new focal deficit Psy/Mental Status: Reports: alert, normal affect, normal mood *Q Meaningful Use (DIS) - VTE *Q VTE Criteria *Q: - Stroke *Q Stroke Criteria *Q: - AMI *Q AMI Criteria *Q:
[2017-01-16] MEDS ORDERED: Magnesium Oxide 400 MG Tab PO SCH (09:00)
[2017-01-16] MEDS: cefTRIAXone 1 GM in Sodium Chloride 0.9% 100 ML IV SCH ×2 (09:12→10:55)
[2017-01-16] MEDS: Nicotine 21 MG/24 Hr Patch TRDERM SCH (09:20)
[2017-01-16] MEDS: Fish Oil/Omega-3 Fatty Acids 1 Gm Cap PO SCH (09:20)
[2017-01-16] MEDS: Saccharomyces Boulardii (Probiotic) 250 MG Cap PO SCH (09:20)
[2017-01-16] MEDS: Famotidine 20 MG Tab PO SCH (09:21)
[2017-01-16] MEDS: Lisinopril 10 MG Tab PO SCH (09:21)
[2017-01-16] MEDS: Multivitamins,Therapeutic Tab PO SCH (09:21)
[2017-01-16] MEDS: Hydrochlorothiazide 12.5 MG Cap PO SCH (09:21)
[2017-01-16] MEDS: Calcium Carbonate/Vitamin D3 1500 MG-200 Units Tab PO SCH (09:21)
[2017-01-16] MEDS: Aspirin 81 MG Tab.EC PO SCH (09:24)
[2017-01-16] MEDS: Clopidogrel 75 MG Tab PO SCH (09:24)
[2017-01-16] MEDS: Simvastatin 10 MG Tab PO SCH (09:24)
[2017-01-16 09:28] VITALS: BP 131/73
== END 2017-01-16 11:45 | disposition home or self-care (01) | DRG 690 ==
LOC: JD.ED 07:48 → JD.MS 12:21
PROVIDERS: ADMIT Internal Medicine; ATTEND Internal Medicine
PROC: 30233N1 Transfusion of Nonautologous Red Blood Cells into Peripheral Vein, Percutaneous Approach (ICD-10-PCS; principal; 2017-01-14)
DX: N12 Tubulo-interstitial nephritis, not specified as acute or chronic (principal); N30.91 Cystitis, unspecified with hematuria; E78.00 Pure hypercholesterolemia, unspecified; T83.511A Infection and inflammatory reaction due to indwelling urethral catheter, initial encounter; F17.200 Nicotine dependence, unspecified, uncomplicated; F32.9 Major depressive disorder, single episode, unspecified; Z79.899 Other long term (current) drug therapy; Z88.8 Allergy status to other drugs, medicaments and biological substances; B96.20 Unspecified Escherichia coli [E. coli] as the cause of diseases classified elsewhere; R50.9 Fever, unspecified; Z93.6 Other artificial openings of urinary tract status; N99.89 Other postprocedural complications and disorders of genitourinary system; D64.9 Anemia, unspecified; Z98.890 Other specified postprocedural states; F17.210 Nicotine dependence, cigarettes, uncomplicated; I10 Essential (primary) hypertension; E78.5 Hyperlipidemia, unspecified; J45.909 Unspecified asthma, uncomplicated; R53.1 Weakness; Z86.79 Personal history of other diseases of the circulatory system
CPT/HCPCS: 36415; 71010; 80053; 81003; 85025; 86140; 87040; 87086; 87088; 87186; 96361; 96365; 99285; J0696; J7030; J7040 ×2; J7050; 36430; 80048; 83735; 85014; 85018; 86850; 86900; 86901; 86922; 97161-GP; 97165-GO; 97530-GO; 99284; A9270-GY; J0360; J2543; P9016

== ENCOUNTER 2017-01-18 17:31 | Emergency (ER) | payer MEDICARE, OTHER ==
[2017-01-18] MEDS ORDERED: Sodium Chloride 0.9% 10 ML Syringe FLUSH PRN (18:13)
--- NOTE | 2017-01-18 19:58 | EDM.PDOC ---
ED HPI GENERAL MEDICAL PROBLEM - General Time Seen by Provider: 01/18/17 18:00 - Related Data Allergies Allergy/AdvReac Type Severity Reaction Status Date / Time iodine Allergy Rash Verified 01/18/17 17:44 Home Meds: Home Meds Albuterol Sulfate [Proventil Hfa] 2 inh PO Q4H PRN 01/13/17 [History] Aspirin [[place] Aspirin] 81 mg PO DAILY 01/13/17 [History] Bisacodyl [Dulcolax] 10 mg RECTAL DAILY PRN 01/13/17 [History] Calcium Citrate/Vitamin D3 [Citracal + D Maximum Caplet] 1 tab PO BID 01/13/17 [ History] Clopidogrel [Plavix] 75 mg PO DAILY 01/13/17 [History] Docusate Sodium [Colace] 100 - 300 mg PO DAILY PRN 01/13/17 [History] Fish Oil/Willard-3 Fatty Acids [Fish Oil 1,000 MG] 2,000 mg PO BID 01/13/17 [ History] Lisinopril/Hydrochlorothiazide [Lisinopril-Hctz 10-12.5 mg Tab] 1 tab PO DAILY 01/13/17 [History] Multivitamin [Daily Multiple Vitamin] 1 tab PO DAILY 01/13/17 [History] Pantoprazole [ProTONIX] 40 mg PO DAILY 01/13/17 [History] atorvaSTATin [Lipitor] 10 mg PO DAILY 01/13/17 [History] oxyCODONE HCl/Acetaminophen [oxyCODONE-Acetaminophen 5-325] 1 - 2 tab PO Q6HR PRN 01/13/17 [History] Ciprofloxacin HCl [Cipro] 500 mg PO DAILY #4 tablet 01/16/17 [Rx] Past Medical History HEENT History: Reports: Impaired vision, Other (see below) Other HEENT History: wear glasses, poor teeth Cardiovascular History: Reports: Aneurysm, High cholesterol, Hypertension Respiratory History: Reports: Other (see below) Other Respiratory History: Patient is a smoker and so states she has a cough and a little SOB sometimes Gastrointestinal History: Reports: Other (see below) Other Gastrointestinal History: Hernia- unsure what kind Genitourinary History: Reports: UTI, recurrent Other Genitourinary History: previous bladder infection after a prior surgery LABORATORY ENGINEER 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 Like I just lay in bed and think I don't care what gets done with me." Dermatologic History: Reports: Other (see below) Other Dermatologic History: dry skin - Infectious Disease History Infectious Disease History: Reports: Chicken pox, Measles, Mumps - Past Surgical History HEENT Surgical History: Reports: None Cardiovascular Surgical History: Reports: AAA repair, Aneurysm Female Surgical History: Reports: Oophorectomy, Other (see below) Other Female Surgeries/Procedures: Patient also states "I think they took a fallopian tube or part of one too" Neurological Surgical History: Reports: None Social & Family History - Family History Family Medical History: Noncontributory - Tobacco Use Smoking Status *Q: Former Smoker Years of Tobacco use: 55 Packs/Tins Daily: 2 Used Tobacco, but Quit: Yes Month Tobacco Last Used: december 2016 - Caffeine Use Caffeine Use: Reports: Coffee Caffeine Use Comment: Everyday - Recreational Drug Use Recreational Drug Use: No ED ROS GENERAL - Review of Systems Review Of Systems: See Below Constitutional: Reports: Decreased Appetite. Denies: Fever, Chills GI/Abdominal: Reports: Diarrhea. Denies: Nausea, Vomiting : Reports: Hematuria, Other (indwelling foly cath). Denies: Flank Pain Musculoskeletal: Denies: Back Pain ED EXAM, RENAL/ - Physical Exam Exam: See Below Exam Limited By: No Limitations General Appearance: Alert, WD/WN, No Apparent Distress Respiratory/Chest: No Respiratory Distress, Lungs Clear, Normal Breath Sounds Cardiovascular: Normal Peripheral Pulses, Regular Rate, Rhythm, No Murmur GI/Abdominal: Normal Bowel Sounds, Soft, Non-Tender (Female) Exam: Other (cathater bag contains several small (<1cm in diameter) clots; urine is light pink ) Back Exam: Normal Inspection. No: CVA Tenderness (L), CVA Tenderness (R) Course - Vital Signs Last Recorded V/S: Last Vital Signs Temp 36.1 C 01/18/17 17:44 Pulse 80 01/18/17 17:44 Resp 16 01/18/17 17:44 BP 153/67 H 01/18/17 20:10 Pulse Ox 99 01/18/17 20:10 - Orders/Labs/Meds Labs: Laboratory Tests 01/18/17 01/18/17 01/18/17 Range/Units 18:18 18:27 18:27 WBC 8.58 (3.98-10.04) K/mm3 RBC 3.84 L (3.98-5.22) M/mm3 Hgb 11.6 (11.2-15.7) gm/L Hct 34.6 (34.1-44.9) % MCV 90.1 (79.4-94.8) fl MCH 30.2 (25.6-32.2) pg MCHC 33.5 (32.2-35.5) g/dl RDW Std Deviation 42.8 (36.4-46.3) fL Plt Count 320 (182-369) K/mm3 MPV 9.6 (9.4-12.3) fl Neut % (Auto) 68.0 (34.0-71.1) % Lymph % (Auto) 19.7 (19.3-51.7) % [place] % (Auto) 8.4 (4.7-12.5) % Eos % (Auto) 3.3 (0.7-5.8) Baso % (Auto) 0.3 (0.1-1.2) % Neut # (Auto) 5.83 (1.56-6.13) K/mm3 Lymph # (Auto) 1.69 (1.18-3.74) K/mm3 [place] # (Auto) 0.72 H (0.24-0.36) K/mm3 Eos # (Auto) 0.28 (0.04-0.36) K/mm3 Baso # (Auto) 0.03 (0.01-0.08) K/mm3 Sodium 139 (136-145) mEq/L Potassium 3.6 (3.5-5.1) mEq/L Chloride 105 (98-107) mEq/L Carbon Dioxide 27 (21-32) mEq/L Anion Gap 10.6 (5-15) BUN 17 (7-18) mg/dL Creatinine 1.1 H (0.55-1.02) mg/dL Est Cr Clr Drug Dosing 32.72 mL/min Estimated GFR (MDRD) 49 (>60) mL/min BUN/Creatinine Ratio 15.5 (14-18) Glucose 123 H (83-115) mg/dL Calcium 9.2 (8.5-10.1) mg/dL Total Bilirubin 0.3 (0.2-1.0) mg/dL AST 29 (15-37) U/L ALT 49 (14-59) U/L Alkaline Phosphatase 95 (46-116) U/L C-Reactive Protein 3.3 H* (<1.0) mg/dL Total Protein 6.7 (6.4-8.2) g/dl Albumin 3.0 L (3.4-5.0) g/dl Globulin 3.7 gm/dL Albumin/Globulin Ratio 0.8 L (1-2) Urine Color Light yellow (Yellow) Urine Appearance Clear (Clear) Urine pH 7.0 (5.0-8.0) Ur Specific [place] 1.010 (1.005-1.030) Urine Protein Negative (Negative) Urine Glucose (UA) Negative (Negative) Urine Ketones Negative (Negative) Urine Occult Blood 3+ H (Negative) Urine Nitrite Negative (Negative) Urine Bilirubin Negative (Negative) Urine Urobilinogen 0.2 (0.2-1.0) Ur Leukocyte Esterase Negative (Negative) Urine RBC 20-30 H (0-5) /hpf Urine WBC 0-5 (0-5) /hpf Ur Epithelial Cells Not Reportable Ur Squamous Epith Cells 0-5 (0-5) /hpf Urine Bacteria Few (FEW) /hpf Urine Mucus Not seen (FEW) /hpf Meds: Medications Discontinued Medications Generic Name Dose Route Start Last Admin Trade Name Haroon PRN Reason Stop Dose Admin Sodium Chloride 10 ml 01/18/17 18:13 01/18/17 18:31 Saline Flush FLUSH 10 ml ASDIRECTED PRN Administration Keep Vein Open - Re-Assessments/Exams Free Text/Narrative Re-Assessment/Exam: 01/18/17 19:46 Lab studies have returned. White blood cell count is normal at 8.58, hemoglobin is 11.6 and platelets are 320. CRP is mildly elevated at 3.3. UA shows 3+ blood. Negative for nitrites, leukocytes and bacteria on microscopy. Sodium is 139, potassium 3.6 and chloride is 105. Creatinine is 1.1. BUN is 17. Glucose is 123. I reviewed the lab results with the patient and her daughters. Does not appear to have a urinary tract infection at this time, however, I did send the urine for culture. I will notify them if there is any change. Her white blood cell count is normal. I believe her CRP is mildly elevated due to her recent surgery. I feel she can safely go home and we will discharge her home at this time. 01/23/17 11:48 Urine culture shows no growth. Departure - Departure Time of Disposition: 19:56 Disposition: Home, Self-Care 01 Clinical Impression: Hematuria - Discharge Information Instructions: Hematuria, Adult Referrals: Coco Fuentes, RENT CONTROL OFFICE MANAGER [Primary Care Provider] - Forms: ED Department Discharge Additional Instructions: Continue with your current plan of care. Call ER if you would like to change to a leg bag and do not have one at home. Please return to the ER should your symptoms change or worsen. ED HPI RENAL/ - General Chief Complaint: Genitourinary Problem Stated Complaint: DARK COLORED URINE Time Seen by Provider: 01/18/17 18:00 Source of Information: Reports: Patient, Old records (recent ER notes ) History Limitations: Reports: No Limitations - History of Present Illness INITIAL COMMENTS - FREE TEXT/NARRATIVE: 71-year-old female is brought in by her daughters for evaluation and treatment of hematuria. Hematuria first appeared about 2-1/2 hours prior to arrival in the ER. Her daughters became concerned when he noticed darker urine with some "stringy" clots. Patient was recently hospitalized at our facility for hematuria and a urinary tract infection. She was sent home on 01-16-17 with ciprofloxacin. She states that she took this to completion. Patient denies any fevers, chills, back pain, nausea or vomiting. She has had about 5 episodes of diarrhea today and has noticed a decreased appetite. Patient is status post AAA repair. This was preformed on 01-07-17 at [facility] in [place]. She was sent home with a indwelling urinary catheter. The catheter was removed during her ER visit on 01-13-17 but during her hospitalization was replaced. The catheter has been indwelling since. They noticed clots and darker , pink urine in catheter bag today. Previous urine cultures showed Escherichia coli. Blood cultures were negative. Patient is scheduled for followup with urology on January 22. - Related Data Allergies/ADRs: Allergies Allergy/AdvReac Type Severity Reaction Status Date / Time iodine Allergy Rash Verified 01/18/17 17:44 Home Meds: Home Meds Albuterol Sulfate [Proventil Hfa] 2 inh PO Q4H PRN 01/13/17 [History] Aspirin [[place] Aspirin] 81 mg PO DAILY 01/13/17 [History] Bisacodyl [Dulcolax] 10 mg RECTAL DAILY PRN 01/13/17 [History] Calcium Citrate/Vitamin D3 [Citracal + D Maximum Caplet] 1 tab PO BID 01/13/17 [ History] Clopidogrel [Plavix] 75 mg PO DAILY 01/13/17 [History] Docusate Sodium [Colace] 100 - 300 mg PO DAILY PRN 01/13/17 [History] Fish Oil/Willard-3 Fatty Acids [Fish Oil 1,000 MG] 2,000 mg PO BID 01/13/17 [ History] Lisinopril/Hydrochlorothiazide [Lisinopril-Hctz 10-12.5 mg Tab] 1 tab PO DAILY 01/13/17 [History] Multivitamin [Daily Multiple Vitamin] 1 tab PO DAILY 01/13/17 [History] Pantoprazole [ProTONIX] 40 mg PO DAILY 01/13/17 [History] atorvaSTATin [Lipitor] 10 mg PO DAILY 01/13/17 [History] oxyCODONE HCl/Acetaminophen [oxyCODONE-Acetaminophen 5-325] 1 - 2 tab PO Q6HR PRN 01/13/17 [History] Ciprofloxacin HCl [Cipro] 500 mg PO DAILY #4 tablet 01/16/17 [Rx] Departure - Departure Time of Disposition: 19:56 Disposition: Home, Self-Care 01 Condition: good Clinical Impression: Hematuria Instructions: Hematuria, Adult Referrals: Coco Fuentes RENT CONTROL OFFICE MANAGER [Primary Care Provider] - Forms: ED Department Discharge Additional Instructions: Continue with your current plan of care. Call ER if you would like to change to a leg bag and do not have one at home. Please return to the ER should your symptoms change or worsen.
[2017-01-18 20:15] VITALS: BP 153/67
== END 2017-01-18 20:10 | disposition home or self-care (01) ==
LOC: JD.ED 17:31
DX: R31.9 Hematuria, unspecified (principal); E78.00 Pure hypercholesterolemia, unspecified; I10 Essential (primary) hypertension; F32.9 Major depressive disorder, single episode, unspecified; Z87.891 Personal history of nicotine dependence; Z79.82 Long term (current) use of aspirin; Z79.899 Other long term (current) drug therapy
CPT/HCPCS: 36415; 80053; 81001; 85025; 86140; 87086; 99283; J7050; 99282

== ENCOUNTER 2018-09-10 07:12 | Day surgery (SDC) | payer MEDICARE, OTHER ==
[~2018-09-10 07:12] MED LIST: Lactated Ringers 1,000 ML IV SCH; Lidocaine 1%/Sod Bicarbonate in NS 8.4% 1 ML Syringe IDERM PRN; Propofol 200 MG/20 ML SDV ONE; Sodium Chloride 0.9% 10 ML Syringe FLUSH PRN; fentaNYL 100 MCG/2 ML SDV ONE
[2018-09-10] MEDS ORDERED: Lidocaine 1% 4 ML ONE (07:13)
--- NOTE | 2018-09-10 08:08 | PCM.PREANE ---
Preanesthetic Assessment - Procedure Proposed Procedure: Diagnostic colonoscopy diagnostic EGD - Anesthesia/Transfusion/Family Hx Anesthesia History: Prior Anesthesia Without Reaction Family History of Anesthesia Reaction: No Transfusion History: Prior Transfusion Without Reaction Intubation History: Unknown - Review of Systems General: No Symptoms Pulmonary: Shortness of Breath (COPD with daily inhaler use ) Cardiovascular: Other (HTN, Endovascular AAA repair on Plavix) Gastrointestinal: Other (GERD) Neurological: No Symptoms Other: Reports: Easy Bleeding, Thyroid Problems (hypothyroid ) - Physical Assessment NPO Status Date: 09/09/18 NPO Status Time: 21:00 O2 Sat by Pulse Oximetry: 95 Respiratory Rate: 18 Vital Signs: Last Vital Signs Temp 37.2 C 09/10/18 07:20 Pulse 75 09/10/18 07:20 Resp 18 09/10/18 07:20 BP 127/64 09/10/18 07:20 Pulse Ox 95 09/10/18 07:20 Height: 1.52 m Weight: 57.9 kg Mental Status: Alert & Oriented x3 Airway Class: Mallampati = 1 Dentition: Reports: Broken Tooth/Teeth, Missing Tooth/Teeth (multiple missing and broken teeth. Very poor dentition ) Thyro-Mental Finger Breadths: 3 Mouth Opening Finger Breadths: 3 ROM/Head Extension: Full Lungs: Clear to Auscultation, Normal Respiratory Effort Cardiovascular: Regular Rate, Regular Rhythm - Allergies Allergies/Adverse Reactions: Allergies Allergy/AdvReac Type Severity Reaction Status Date / Time iodine Allergy Hives Verified 09/10/18 07:57 - Blood Blood Available: No Product(s) Available: None - Anesthesia Plan Pre-Op Medication Ordered: None - Acknowledgements Anesthesia Type Planned: MAC Pt an Appropriate Candidate for the Planned Anesthesia: Yes Alternatives and Risks of Anesthesia Discussed w Pt/Guardian: Yes Pt/Guardian Understands and Agrees with Anesthesia Plan: Yes PreAnesthesia Questionnaire HEENT History: Reports: Impaired Vision, Other (See Below) Other HEENT History: wear glasses, poor teeth Cardiovascular History: Reports: Aneurysm, High Cholesterol, Hypertension Respiratory History: Reports: Other (See Below) Other Respiratory History: Patient is a smoker and so states she has a cough and a little SOB sometimes Gastrointestinal History: Reports: Other (See Below) Other Gastrointestinal History: Hernia- unsure what kind Genitourinary History: Reports: UTI, Recurrent Other Genitourinary History: previous bladder infection after a prior surgery INFORMATION RESOURCES MANAGER History: Reports: Neurological History: Reports: Other (See Below) Other Neuro History: c/o numbness to left arm/fingers at times Psychiatric History: Reports: Depression, Other (See Below) Other Psychiatric History: Patient states "Sometimes things make me feel down. Like I just lay in bed and think I don't care what gets done with me." Dermatologic History: Reports: Other (See Below) Other Dermatologic History: dry skin - Infectious Disease History Infectious Disease History: Reports: Chicken Pox, Measles, Mumps - Past Surgical History Cardiovascular Surgical History: Reports: AAA Repair, Aneurysm GI Surgical History: Reports: Colonoscopy, Hernia Repair/Other Female Surgical History: Reports: Oophorectomy, Other (See Below) - HOME MEDS Home Medications: Home Meds Albuterol Sulfate [Proventil Hfa] 2 puff PO Q4H PRN 01/13/17 [History] Clopidogrel [Plavix] 75 mg PO DAILY 01/13/17 [History] Lisinopril/Hydrochlorothiazide [Lisinopril-Hctz 10-12.5 mg Tab] 1 tab PO DAILY 01/13/17 [History] Pantoprazole [ProTONIX] 40 mg PO DAILY 01/13/17 [History] atorvaSTATin [Lipitor] 10 mg PO DAILY 01/13/17 [History] Aspirin [Adult Aspirin] 81 mg PO DAILY 07/01/18 [History] Fluticasone/Salmeterol [Advair 250-50 Diskus] 1 puff INH DAILY 07/01/18 [History ] Calcium Carb & Citrate/Vit D3 [Citracal + D ER] 1 tab PO DAILY 08/12/18 [History ] - CURRENT (IN HOUSE) MEDS Current Meds: Current Medications Lactated Ringer's (Ringers, Lactated) 1,000 mls @ 125 mls/hr IV ASDIRECTED MERVAT Stop: 09/10/18 23:00 Lidocaine/Sodium Bicarbonate (Buffered Lidocaine 1% In Ns 8.4%) 0.25 ml IDERM ONETIME PRN PRN Reason: Prior to IV Start Stop: 09/10/18 18:00 Sodium Chloride (Saline Flush) 10 ml FLUSH ASDIRECTED PRN PRN Reason: Keep Vein Open Stop: 09/10/18 18:00 Discontinued Medications Fentanyl (Sublimaze) Confirm Administered Dose 100 mcg .ROUTE .STK-MED ONE Stop: 09/10/18 07:13 Lidocaine HCl (Xylocaine-Mpf 1%) Confirm Administered Dose 4 mls @ as directed .ROUTE .STK-MED ONE Stop: 09/10/18 07:14 Propofol (Diprivan 20 Ml) Confirm Administered Dose 200 mg .ROUTE .STK-MED ONE Stop: 09/10/18 07:12
[2018-09-10] MEDS ORDERED: Propofol 200 MG/20 ML SDV ONE (09:26)
--- NOTE | 2018-09-10 09:52 | PCM.OPNOTE ---
- General Post-Op/Procedure Note Date of Surgery/Procedure: 09/10/18 Operative Procedure(s): EGD wlith bx/colonosocopy to cecum Pre Op Diagnosis: iron deficiency anemai Post-Op Diagnosis: Same Anesthesia Technique: MAC Primary Surgeon: Thierno Trujillo EBL in mLs: 0 Complications: None Condition: Good
[2018-09-10 11:04] VITALS: BP 126/73
--- NOTE | 2018-09-11 05:54 | OR ---
DATE OF OPERATION: 09/10/2018 SURGEON: Thierno Trujillo MD PREOPERATIVE DIAGNOSIS: Iron deficiency anemia. POSTOPERATIVE DIAGNOSIS: Iron deficiency anemia. OPERATION PERFORMED: Esophagogastroduodenoscopy with biopsy. FINDINGS: Irregular GE junction located at 35 cm, 4-quadrant biopsies were taken. Second portion of the duodenum, duodenal bulb, and pyloric channel were unremarkable. Antrum, body, cardia, and fundus of the stomach showed just some flat mucosa suggestive of chronic gastritis. There was an incompetent hiatus and the rest of the esophagus was unremarkable. ANESTHESIA: Done under IV sedation. DESCRIPTION OF PROCEDURE: The patient was taken to the endoscopy suite, connected to monitoring equipment, given IV sedation, placed in left lateral position. Bite block was inserted. A video Olympus gastroscope placed in the posterior oropharynx and under direct vision threaded past the cricopharyngeus, down the esophagus, into the stomach. The stomach was insufflated and the scope passed through the pylorus to the second portion of the duodenum. The second portion of the duodenum, duodenal bulb, and pyloric channel were viewed as the scope withdrawn and were normal. Antrum, body, cardia, and fundus of the stomach were unremarkable other than showing some flattened mucosa, chronic gastritis. J-maneuver showed mild incompetence of hiatus. Scope withdrawn to the GE junction located at 35 cm, showed irregularity of the Z-line. Four-quadrant biopsies were done. Rest of the esophagus viewed as the scope withdrawn and was normal. The patient tolerated the procedure. Biopsies sent to pathology in a labeled container and IV sedation continued for further endoscopy. ESTIMATED BLOOD LOSS: MMODAL /[id number]
--- NOTE | 2018-09-11 05:56 | OR ---
DATE OF OPERATION: 09/10/2018 SURGEON: Thierno Trujillo MD PREOPERATIVE DIAGNOSIS: Iron deficiency anemia. POSTOPERATIVE DIAGNOSIS: Iron deficiency anemia. OPERATION PERFORMED: Colonoscopy to cecum and cannulation of the ileum. FINDINGS: Normal study. ANESTHESIA: Done under IV sedation. DESCRIPTION OF PROCEDURE: The patient had been taken to the endoscopy room, connected to monitoring equipment, given IV sedation for upper GI endoscopy. The sedation was continued for colonoscopy. She was placed in left lateral position. Perianal area was inspected and was normal. Rectal exam was normal. The video Olympus colonoscope was then introduced into the rectum and threaded up to the cecum, which demonstrated the appendicular orifice and ileocecal valve, was cannulated showing a normal ileum. Prep was excellent. [place] Cleansing score grade A. The scope was slowly withdrawn showing the cecum, ascending colon, transverse colon, descending colon, sigmoid colon, and rectum. The patient tolerated the procedure, sent to recovery room in a stable condition, will be followed up in the clinic. ESTIMATED BLOOD LOSS: MMODAL /[id number]
== END 2018-09-10 10:50 | disposition home or self-care (01) ==
LOC: JD.SDS 07:12
PROVIDERS: ATTEND Surgery
DX: D50.9 Iron deficiency anemia, unspecified (principal); I10 Essential (primary) hypertension; J44.9 Chronic obstructive pulmonary disease, unspecified; F17.210 Nicotine dependence, cigarettes, uncomplicated; K21.9 Gastro-esophageal reflux disease without esophagitis; I71.4 Abdominal aortic aneurysm, without rupture; Z86.010 Personal history of colon polyps; Z79.82 Long term (current) use of aspirin; Z79.02 Long term (current) use of antithrombotics/antiplatelets; Z79.899 Other long term (current) drug therapy; Z88.8 Allergy status to other drugs, medicaments and biological substances
CPT/HCPCS: 43239; 45378; J2704; J3010; J7120; J2001

== ENCOUNTER 2019-06-05 15:36 | Emergency (ER) | payer MEDICARE, OTHER ==
[2019-06-05] MEDS ORDERED: HYDROmorphone 0.5 MG/0.5 ML Syringe IM ONE ×2 (16:18→17:23)
[2019-06-05] MEDS ORDERED: Levofloxacin 500 MG Tab PO ONE (17:21)
--- NOTE | 2019-06-05 17:29 | EDM.PDOC ---
ED HPI GENERAL MEDICAL PROBLEM - General Chief Complaint: Back Pain or Injury Stated Complaint: BACK PAIN Time Seen by Provider: 06/05/19 15:57 Source of Information: Reports: Patient, RN Notes Reviewed History Limitations: Reports: No Limitations - History of Present Illness INITIAL COMMENTS - FREE TEXT/NARRATIVE: Patient is a 73-year-old female who presents to the ED for the evaluation of mid to lower back pain. Patient notes this pain has been present for a couple of days but today he notes that the pain is much worse. She does not think she is injured her back. She does relate some more physical work than she normally does a couple of days ago, but she does not think that she injured her back doing this. Patient states that she also self catheterizes herself up to 5 times daily. The patient states that she tries to use as sterile of technique is possible but sometimes does not keep in a sterile as she should. She denies any fever, and the pain waxes and wanes in nature. She denies any nausea or vomiting, or any abdominal pain. She also states that she does not have much for an appetite. She is a smoker, but does not use alcohol or other drugs. 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 SERVICE UTILITY WORKER: Reports: Acetaminophen Other 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 SERVICE UTILITY WORKER: 975 mg FOOD SERVICE UTILITY WORKER Left Back Pain Score (Numeric/FACES): 8 - Related Data Allergies Allergy/AdvReac Type Severity Reaction Status Date / Time iodine Allergy Hives Verified 06/05/19 15:47 Home Meds: Home Meds Albuterol Sulfate [Proventil Hfa] 2 puff PO Q4H PRN 01/13/17 [History] Clopidogrel [Plavix] 75 mg PO DAILY 01/13/17 [History] Lisinopril/Hydrochlorothiazide [Lisinopril-Hctz 10-12.5 mg Tab] 1 tab PO DAILY 01/13/17 [History] Pantoprazole [ProTONIX] 40 mg PO DAILY 01/13/17 [History] atorvaSTATin [Lipitor] 10 mg PO DAILY 01/13/17 [History] Aspirin [Adult Aspirin] 81 mg PO DAILY 07/01/18 [History] Fluticasone/Salmeterol [Advair 250-50 Diskus] 1 puff INH DAILY 07/01/18 [History ] Calcium Carb & Citrate/Vit D3 [Citracal + D ER] 1 tab PO DAILY 08/12/18 [History ] Levofloxacin 500 mg PO DAILY #9 tablet 06/05/19 [Rx] Past Medical History HEENT History: Reports: Impaired Vision, Other (See Below) Other HEENT History: wear glasses, poor teeth Cardiovascular History: Reports: Aneurysm, High Cholesterol, Hypertension Respiratory History: Reports: Other (See Below) Other Respiratory History: Patient is a smoker and so states she has a cough and a little SOB sometimes Gastrointestinal History: Reports: Other (See Below) Other Gastrointestinal History: Hernia- unsure what kind Genitourinary History: Reports: UTI, Recurrent Other Genitourinary History: previous bladder infection after a prior surgery EDGER HAND History: Reports: Neurological History: Reports: Other (See Below) Other Neuro History: c/o numbness to left arm/fingers at times Psychiatric History: Reports: Depression, Other (See Below) Other Psychiatric History: Patient states "Sometimes things make me feel down. Like I just lay in bed and think I don't care what gets done with me." Dermatologic History: Reports: Other (See Below) Other Dermatologic History: dry skin - Infectious Disease History Infectious Disease History: Reports: Chicken Pox, Measles, Mumps - Past Surgical History Cardiovascular Surgical History: Reports: AAA Repair, Aneurysm GI Surgical History: Reports: Colonoscopy, Hernia Repair/Other Female Surgical History: Reports: Oophorectomy, Other (See Below) Social & Family History - Family History Family Medical History: Noncontributory - Tobacco Use Smoking Status *Q: Current Every Day Smoker Years of Tobacco use: 55 Packs/Tins Daily: 1 - Caffeine Use Caffeine Use: Reports: Coffee Caffeine Use Comment: Everyday - Recreational Drug Use Recreational Drug Use: No ED ROS GENERAL - Review of Systems Review Of Systems: See Below Constitutional: Denies: Fever HEENT: Reports: No Symptoms Respiratory: Reports: No Symptoms Cardiovascular: Reports: No Symptoms Endocrine: Reports: No Symptoms GI/Abdominal: Reports: No Symptoms : Reports: No Symptoms Musculoskeletal: Reports: Back Pain (lower back pain) Skin: Reports: No Symptoms Neurological: Reports: No Symptoms Psychiatric: Reports: No Symptoms Hematologic/Lymphatic: Reports: No Symptoms ED EXAM,LOWER BACK PAIN/INJURY - Physical Exam Exam: See Below Exam Limited By: No Limitations General Appearance: Alert, WD/WN, No Apparent Distress Head: Atraumatic, Normocephalic Neck: Normal Inspection, Supple, Non-Tender, Full Range of Motion Respiratory/Chest: No Respiratory Distress, Lungs Clear, Normal Breath Sounds, No Accessory Muscle Use, Chest Non-Tender Cardiovascular: Normal Peripheral Pulses, Regular Rate, Rhythm, No Murmur GI/Abdominal: Normal Bowel Sounds, Soft, Non-Tender, No Distention, No Mass Back Exam: Normal Inspection, CVA Tenderness (L). No: CVA Tenderness (R) Extremities: Normal Inspection, Normal Capillary Refill Neurological: Alert, Normal Mood/Affect, Normal Dorsiflexion, Normal Plantar Flexion, Normal Gait, Oriented x 3. No: Straight Leg Raise (L), Straight Leg Raise (R), Saddle Anesthesia Psychiatric: Normal Affect, Normal Mood Skin Exam: Warm, Dry, Intact, Normal Color, No Rash Course - Vital Signs Last Recorded V/S: Last Vital Signs Temp 97.7 F 06/05/19 15:47 Pulse 77 06/05/19 15:47 Resp 18 06/05/19 15:47 BP 143/75 H 06/05/19 15:47 Pulse Ox 100 06/05/19 15:47 - Orders/Labs/Meds Orders: Active Orders 24 hr Category Date Time Status CULTURE URINE [RM] Routine Lab 06/05/19 17:18 Ordered Labs: Laboratory Tests 06/05/19 Range/Units 16:50 Urine Color Yellow (Yellow) Urine Appearance Clear (Clear) Urine pH 6.0 (5.0-8.0) Ur Specific [place] 1.015 (1.005-1.030) Urine Protein Negative (Negative) Urine Glucose (UA) Negative (Negative) Urine Ketones Trace H (Negative) Urine Occult Blood 1+ H (Negative) Urine Nitrite Negative (Negative) Urine Bilirubin Negative (Negative) Urine Urobilinogen 0.2 (0.2-1.0) Ur Leukocyte Esterase 3+ H (Negative) Urine RBC 5-10 H (0-5) /hpf Urine WBC 30-40 H (0-5) /hpf Ur Squamous Epith Cells 0-5 (0-5) /hpf Urine Bacteria Many H (FEW) /hpf Urine Mucus Few (FEW) /hpf Meds: Medications Discontinued Medications Generic Name Dose Route Start Last Admin Trade Name Freq PRN Reason Stop Dose Admin Hydromorphone HCl 0.5 mg 06/05/19 16:18 06/05/19 16:44 Dilaudid IM 06/05/19 16:19 0.5 mg ONETIME ONE Administration Hydromorphone HCl 0.5 mg 06/05/19 17:23 Dilaudid IM 06/05/19 17:24 ONETIME ONE Levofloxacin 500 mg 06/05/19 17:21 Levaquin PO 06/05/19 17:22 ONETIME ONE - Re-Assessments/Exams Free Text/Narrative Re-Assessment/Exam: 06/05/19 17:31 Patient presents to the ED for the evaluation of lower back pain. Did order a UA to begin with, and half milligram of Dilaudid for initial management. The urinalysis which was obtained by quick catheter does demonstrate many white blood cells in the specimen, which is suggestive of a UTI or pyelonephritis in nature. Will start the patient on levofloxacin for management of this, have sent the urine for culture. Departure - Departure Time of Disposition: 17:26 Disposition: Home, Self-Care 01 Condition: Fair Clinical Impression: Pyelonephritis - Discharge Information *PRESCRIPTION DRUG MONITORING PROGRAM REVIEWED*: No *COPY OF PRESCRIPTION DRUG MONITORING REPORT IN PATIENT WAYNE: No Prescriptions: Levofloxacin 500 mg PO DAILY #9 tablet Instructions: Pyelonephritis, Adult, [id number] Referrals: Melisa Wheeler MD [Primary Care Provider] - Forms: ED Department Discharge Additional Instructions: You were evaluated in the ED today for your lower back pain. Your urinalysis was positive for urinary tract infection that has spread to your kidneys, called pyelonephritis. You were given a dose of antibiotics in the ER for initial management, and were provided with a prescription for continuation of these antibiotics. This was electronically sent to the [place] [facility] [employer]. Your urinary specimen was sent for culture, to make sure that we picked an appropriate antibiotic, you will be called if you should need a change in your antibiotic. Please try to keep your self catheter technique as sterile as possible when you have to self cath, to try to matthews against future infections. Recommend a follow-up with her primary care physician after the course of antibiotics is done to make sure that the infection has cleared. Please return to the ED if her symptoms should change or worsen. - My Orders Last 24 Hours: My Active Orders 06/05/19 17:18 CULTURE URINE [RM] Routine - Assessment/Plan Last 24 Hours: My Active Orders 06/05/19 17:18 CULTURE URINE [RM] Routine
[2019-06-05 18:08] VITALS: BP 131/65; PULSE 70
== END 2019-06-05 18:00 | disposition home or self-care (01) ==
LOC: JD.ED 15:36
DX: N12 Tubulo-interstitial nephritis, not specified as acute or chronic (principal); B96.20 Unspecified Escherichia coli [E. coli] as the cause of diseases classified elsewhere; E78.00 Pure hypercholesterolemia, unspecified; I10 Essential (primary) hypertension; F17.210 Nicotine dependence, cigarettes, uncomplicated; Z79.899 Other long term (current) drug therapy; Z79.82 Long term (current) use of aspirin; Z91.048 Other nonmedicinal substance allergy status; Z90.722 Acquired absence of ovaries, bilateral
CPT/HCPCS: 81001; 87086; 87088; 87186; 96372; 99283; A9270; J1170

== ENCOUNTER 2021-06-14 11:05 | Emergency (ER) | payer MEDICARE, OTHER ==
[2021-06-14 11:20] VITALS: BP 158/83; PULSE 81
[2021-06-14] MEDS ORDERED: Acetaminophen/HYDROcodone 325-5 MG Tab PO ONE (11:36)
--- NOTE | 2021-06-14 12:43 | EDM.PDOC ---
ED HPI GENERAL MEDICAL PROBLEM - General Chief Complaint: Back Pain or Injury Stated Complaint: BACK AND SIDE PAIN Time Seen by Provider: 06/14/21 11:12 Source of Information: Reports: Patient, Family History Limitations: Reports: No Limitations - History of Present Illness INITIAL COMMENTS - FREE TEXT/NARRATIVE: Patient is a 75-year-old female presenting to the emergency department with complaints of left low back pain. She reports the pain started yesterday. Denies any known injuries. Pain is worse with moving but is also present at rest. Patient self caths due to urinary retention. She has had urinary tract infections in the past. Denies any obvious blood in her urine. She has no history of kidney stones. Pain does not radiate. She has had no fever, chills, nausea, vomiting, or diarrhea. She took Tylenol arthritis earlier this morning with little relief. Treatments LEAD PERSON: Reports: Other (see below) Other Treatments LEAD PERSON: tylenol arthritis Left Lower Back Pain Score (Numeric/FACES): 10 - Related Data Allergies Allergy/AdvReac Type Severity Reaction Status Date / Time iodine Allergy Hives Verified 06/14/21 11:20 Home Meds: Home Meds Albuterol Sulfate [Proventil Hfa] 2 puff PO Q4H PRN 01/13/17 [History] Clopidogrel [Plavix] 75 mg PO DAILY 01/13/17 [History] Lisinopril/Hydrochlorothiazide [Lisinopril-Hctz 10-12.5 mg Tab] 1 tab PO DAILY 01/13/17 [History] Pantoprazole [ProTONIX] 40 mg PO DAILY 01/13/17 [History] atorvaSTATin [Lipitor] 10 mg PO DAILY 01/13/17 [History] Fluticasone Propion/Salmeterol [Advair 250-50 Diskus] 1 puff INH DAILY 07/01/18 [History] Aspirin [Aspirin EC] 81 mg PO DAILY 06/14/21 [History] Hydrocodone/Acetaminophen [Hydrocodone-Acetamin 5-325 mg] 1 each PO Q4H PRN #12 tablet 06/14/21 [Rx] Loratadine [Claritin] 10 mg PO DAILY 06/14/21 [History] Sulfamethoxazole/Trimethoprim [Bactrim Ds Tablet] 1 each PO BID 7 Days #14 tablet 06/14/21 [Rx] Tetrahydroz/Dext 70/Peg 400/Pv [Eye Drops] 15 ml OP ASDIRECTED 06/14/21 [History] Past Medical History HEENT History: Reports: Impaired Vision, Other (See Below) Other HEENT History: wear glasses, poor teeth Cardiovascular History: Reports: Aneurysm, High Cholesterol, Hypertension Respiratory History: Reports: Other (See Below) Other Respiratory History: Patient is a smoker and so states she has a cough and a little SOB sometimes Gastrointestinal History: Reports: Other (See Below) Other Gastrointestinal History: Hernia- unsure what kind Genitourinary History: Reports: UTI, Recurrent Other Genitourinary History: previous bladder infection after a prior surgery 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 Like I just lay in bed and think I don't care what gets done with me." Dermatologic History: Reports: Other (See Below) Other Dermatologic History: dry skin - Infectious Disease History Infectious Disease History: Reports: Chicken Pox, Measles, Mumps - Past Surgical History Cardiovascular Surgical History: Reports: AAA Repair, Aneurysm GI Surgical History: Reports: Colonoscopy, Hernia Repair/Other Female Surgical History: Reports: Oophorectomy, Other (See Below) Social & Family History - Family History Family Medical History: No Pertinent Family History - Tobacco Use Tobacco Use Status *Q: Current Every Day Tobacco User Years of Tobacco use: 60 Packs/Tins Daily: 1 - Caffeine Use Caffeine Use: Reports: Coffee Caffeine Use Comment: Everyday - Recreational Drug Use Recreational Drug Use: No ED ROS GENERAL - Review of Systems Review Of Systems: Comprehensive ROS is negative, except as noted in HPI. ED EXAM,LOWER BACK PAIN/INJURY - Physical Exam Exam: See Below Exam Limited By: No Limitations General Appearance: Alert, WD/WN, No Apparent Distress Respiratory/Chest: No Respiratory Distress, Lungs Clear, Normal Breath Sounds, No Accessory Muscle Use, Chest Non-Tender Cardiovascular: Normal Peripheral Pulses, Regular Rate, Rhythm, No Edema, No Gallop, No JVD, No Murmur, No Rub GI/Abdominal: Normal Bowel Sounds, Soft, Non-Tender, No Organomegaly, No Distention, No Abnormal Bruit, No Mass Back Exam: Normal Inspection, Full Range of Motion, Paraspinal Tenderness (Left mid back). No: Vertebral Tenderness Neurological: Alert, Normal Mood/Affect, Normal Dorsiflexion, CN II-XII Intact, Normal Plantar Flexion, Normal Gait, Normal Reflexes, No Motor/Sensory Deficits, Oriented x 3 Psychiatric: Normal Affect, Normal Mood Skin Exam: Warm, Dry, Intact, Normal Color, No Rash Course - Vital Signs Last Recorded V/S: Last Vital Signs Temp 97 F 06/14/21 11:18 Pulse 81 06/14/21 11:18 Resp 16 06/14/21 11:18 BP 158/83 H 06/14/21 11:18 Pulse Ox 99 06/14/21 11:18 - Orders/Labs/Meds Orders: Active Orders 24 hr Category Date Time Status CULTURE URINE [MREF] Stat Lab 06/14/21 13:59 Received Labs: Laboratory Tests 06/14/21 06/14/21 06/14/21 Range/Units 12:00 12:00 13:59 WBC 8.41 (3.98-10.04) K/mm3 RBC 3.98 (3.98-5.22) M/mm3 Hgb 12.2 (11.2-15.7) gm/dl Hct 36.5 (34.1-44.9) % MCV 91.7 (79.4-94.8) fl MCH 30.7 (25.6-32.2) pg MCHC 33.4 (32.2-35.5) g/dl RDW Std Deviation 41.4 (36.4-46.3) fL Plt Count 227 D (182-369) K/mm3 MPV 10.3 (9.4-12.3) fl Neut % (Auto) 78.7 H (34.0-71.1) % Lymph % (Auto) 14.3 L (19.3-51.7) % [place] % (Auto) 5.4 (4.7-12.5) % Eos % (Auto) 0.7 (0.7-5.8) Baso % (Auto) 0.7 (0.1-1.2) % Neut # (Auto) 6.62 H (1.56-6.13) K/mm3 Lymph # (Auto) 1.20 (1.18-3.74) K/mm3 [place] # (Auto) 0.45 H (0.24-0.36) K/mm3 Eos # (Auto) 0.06 (0.04-0.36) K/mm3 Baso # (Auto) 0.06 (0.01-0.08) K/mm3 Sodium 132 L (136-145) mEq/L Potassium 3.9 (3.5-5.1) mEq/L Chloride 97 L (98-107) mEq/L Carbon Dioxide 26 (21-32) mEq/L Anion Gap 12.9 (5-15) BUN 9 (7-18) mg/dL Creatinine 0.9 (0.55-1.02) mg/dL Est Cr Clr Drug Dosing 37.60 mL/min Estimated GFR (MDRD) > 60 (>60) mL/min BUN/Creatinine Ratio 10.0 L (14-18) Glucose 112 H (70-99) mg/dL Calcium 9.2 (8.5-10.1) mg/dL Total Bilirubin 0.4 (0.2-1.0) mg/dL AST 28 (15-37) U/L ALT 27 (14-59) U/L Alkaline Phosphatase 62 (46-116) U/L Total Protein 7.0 (6.4-8.2) g/dl Albumin 3.7 (3.4-5.0) g/dl Globulin 3.3 gm/dL Albumin/Globulin Ratio 1.1 (1-2) Urine Color Yellow (Yellow) Urine Appearance Slt cloudy H (Clear) Urine pH 6.0 (5.0-8.0) Ur Specific [place] 1.020 (1.005-1.030) Urine Protein Negative (Negative) Urine Glucose (UA) Negative (Negative) Urine Ketones Negative (Negative) Urine Occult Blood 1+ H (Negative) Urine Nitrite Positive H (Negative) Urine Bilirubin Negative (Negative) Urine Urobilinogen 0.2 (0.2-1.0) Ur Leukocyte Esterase 3+ H (Negative) Urine RBC 0-5 (0-5) /hpf Urine WBC 30-40 H (0-5) /hpf Urine WBC Clumps Rare (NOT SEEN) /hpf Ur Squamous Epith Cells 0-5 (0-5) /hpf Urine Bacteria Many H (FEW) /hpf Urine Mucus Not seen (FEW) /hpf Meds: Medications Discontinued Medications Generic Name Dose Route Start Last Admin Trade Name [place] PRN Reason Stop Dose Admin Hydrocodone Bitart/Acetaminophen 1 tab 06/14/21 11:36 06/14/21 11:53 Acetaminophen/Hydrocodone 325-5 Mg Tab PO 06/14/21 11:37 1 tab ONETIME ONE Administration - Re-Assessments/Exams Free Text/Narrative Re-Assessment/Exam: Patient is a 75-year-old female presenting to the emergency department with complaints of left flank pain. She has no tenderness to palpation throughout the area and also denies CVA tenderness. She self caths due to history of urinary retention. I have ordered blood work and urinalysis. We will give her hydrocodone with Tylenol 01/3251 tab. 06/14/21 1300 Hematology significant for sodium slightly low 132, chloride 97. Otherwise unremarkable. Patient is feeling better after the hydrocodone with Tylenol. She has not been able to produce a urine sample thus far. 06/14/21 15:31 Urinalysis shows 1+ occult blood, positive nitrates, 3+ leukocyte esterase, 30- 40 WBCs, and many bacteria. Given patient's symptoms, I have ordered CT scan of the abdomen pelvis without contrast to ensure she does not have an infected kidney stone. 06/14/21 15:48 CT scan showed no ureteral dilatation or ureteral calculi. There is no acute findings. Patient will be discharged home with prescription for Bactrim for urinary tract infection as well as hydrocodone with Tylenol as needed for pain. Discussed return precautions. Discharge instructions as documented. Departure - Departure Time of Disposition: 15:48 Disposition: Home, Self-Care 01 Condition: Good Clinical Impression: Back pain Qualifiers: Back pain location: low back pain Chronicity: acute Back pain laterality: left Sciatica presence: without sciatica Qualified Code(s): M54.5 - Low back pain UTI (urinary tract infection) Qualifiers: Urinary tract infection type: catheter-associated UTI Indwelling urinary catheter type: indwelling urethral catheter Encounter type: initial encounter Qualified Code(s): T83.511A - Infection and inflammatory reaction due to indwelling urethral catheter, initial encounter - Discharge Information *PRESCRIPTION DRUG MONITORING PROGRAM REVIEWED*: No *COPY OF PRESCRIPTION DRUG MONITORING REPORT IN PATIENT WAYNE: No Prescriptions: Sulfamethoxazole/Trimethoprim [Bactrim Ds Tablet] 1 each PO BID 7 Days #14 tablet Hydrocodone/Acetaminophen [Hydrocodone-Acetamin 5-325 mg] 1 each PO Q4H PRN #12 tablet PRN Reason: Pain Referrals: PCP,None [Primary Care Provider] - Forms: ED Department Discharge Additional Instructions: You were seen in the emergency department today for left sided back pain. Work- up included blood work, urinalysis, and a CT scan of your abdomen pelvis. Results of work-up indicate that you likely have urinary tract infection. It was otherwise normal. You have been started on Bactrim which is an antibiotic as well as hydrocodone with Tylenol as needed for pain. Take these medications as prescribed. Recommend using Tylenol or ibuprofen routinely. For pain not relieved by this, you may use the hydrocodone with Tylenol. Ensure that you are not taking in more than 4000 mg of Tylenol from all sources in a 24-hour period. Each tablet of hydrocodone with Tylenol contains 325 mg of Tylenol. If symptoms fail to resolve for the next few days, recommend follow-up in the clinic. If you should experience any new or worsening symptoms please do not hesitate to return to the emergency department for reevaluation. Sepsis Event Note (ED) - Evaluation Sepsis Screening Result: No Definite Risk - Focused Exam Vital Signs: Vital Signs Temp Pulse Resp BP Pulse Ox 06/14/21 11:18 97 F 81 16 158/83 H 99 - My Orders Last 24 Hours: My Active Orders 06/14/21 13:59 CULTURE URINE [MREF] Stat - Assessment/Plan Last 24 Hours: My Active Orders 06/14/21 13:59 CULTURE URINE [MREF] Stat
--- NOTE | 2021-06-14 15:34 | CT ---
CT abdomen and pelvis Technique: Multiple axial sections were obtained from above the dome of the diaphragm inferiorly through the pubic symphysis. Intravenous and oral contrast were not utilized. Study has been performed as a ureteral stone protocol. Reconstructed coronal and sagittal images were obtained. Comparison: Prior CT abdomen and pelvis study of 07/09/11. Findings: There is cortical thinning noted within the superior left kidney. Cyst is noted within the superior right kidney which measures 3.3 cm. Vascular calcification is noted within both kidneys. Ureters show no dilatation. No abnormal calcifications are seen along the course of the ureters. Visualized lung bases show nothing acute. Liver shows fatty infiltration. Spleen size is normal. Bilateral adrenal masses are noted which are stable from prior study. Pancreas appears within normal limits. Abdominal aorta shows evidence of intravascular graft which terminates within the iliac arteries. No retroperitoneal adenopathy is seen. No mesenteric abnormalities are seen. Prior study showed a hernia within the lower left anterior pelvic wall which is no longer seen. Appendix is not definitely visualized. No bowel dilatation is seen. No free fluid or inflammatory change is seen. Bone window settings were reviewed which show mild scattered degenerative change throughout the spine most severe at L5-S1. There is also fairly severe degenerative change within both hips as well as within both sacroiliac joints. Impression: 1. No ureteral dilatation or ureteral calculi are seen. Calcification is noted within both renal arteries. 2. Aortic stent is present which terminates within the iliac arteries. 3. Fatty infiltration within the liver. 4. Stable adrenal masses. 5. Other findings as described above which appear to be chronic. Diagnostic code #2
== END 2021-06-14 16:13 | disposition home or self-care (01) ==
LOC: JD.ED 11:05
DX: T83.511A Infection and inflammatory reaction due to indwelling urethral catheter, initial encounter (principal); N39.0 Urinary tract infection, site not specified; E78.00 Pure hypercholesterolemia, unspecified; I10 Essential (primary) hypertension; Z79.02 Long term (current) use of antithrombotics/antiplatelets; Z88.8 Allergy status to other drugs, medicaments and biological substances; Z79.82 Long term (current) use of aspirin; Z72.0 Tobacco use
CPT/HCPCS: 36415; 74176; 80053; 81001; 85025; 87086; 99284; A9270; 87088; 87186

== ENCOUNTER 2021-10-17 16:23 | Emergency (ER) | payer MEDICARE, OTHER ==
[2021-10-17] MEDS ORDERED: Albuterol/Ipratropium 3.0-0.5 MG/3 ML Neb Soln NEB ONE (17:03)
[2021-10-17] MEDS ORDERED: Sodium Chloride 0.9% 10 ML Syringe FLUSH PRN (17:03)
[2021-10-17] MEDS ORDERED: Sodium Chloride 0.9% 1,000 ML IV ONE (17:03)
[2021-10-17] MEDS ORDERED: HYDROmorphone 1 MG/ML Syringe IVPUSH ONE (18:16)
[2021-10-17 19:09] VITALS: BP 141/84; PULSE 88
== END 2021-10-17 19:03 | disposition home or self-care (01) ==
LOC: JD.ED 16:23
DX: U07.1 COVID-19 (principal); E78.00 Pure hypercholesterolemia, unspecified; I10 Essential (primary) hypertension; Z91.041 Radiographic dye allergy status; Z79.02 Long term (current) use of antithrombotics/antiplatelets; Z79.82 Long term (current) use of aspirin; Z72.0 Tobacco use
CPT/HCPCS: 36415; 71045; 80053; 85025; 85379; 93005; 94640; 96374; 99285; J1170; J7030; J7620-GY

== ENCOUNTER 2022-02-09 07:14 | Emergency (ER) | payer MEDICARE, OTHER ==
[2022-02-09 07:29] VITALS: BP 168/68; PULSE 70
[2022-02-09] MEDS ORDERED: Acetaminophen/HYDROcodone 325-5 MG Tab PO ONE (07:53)
[2022-02-09] MEDS ORDERED: Ketorolac 30 MG/ML SDV IM ONE (09:02)
== END 2022-02-09 09:41 | disposition home or self-care (01) ==
LOC: JD.ED 07:14
DX: R07.89 Other chest pain (principal); E78.00 Pure hypercholesterolemia, unspecified; I10 Essential (primary) hypertension; F17.210 Nicotine dependence, cigarettes, uncomplicated; Z91.041 Radiographic dye allergy status; Z79.82 Long term (current) use of aspirin; Z79.899 Other long term (current) drug therapy; Z79.02 Long term (current) use of antithrombotics/antiplatelets
CPT/HCPCS: 36415; 71046; 80053; 84484; 85025; 93005; 96372; 99285; A9270; J1885

== ENCOUNTER 2023-02-19 10:46 | Day surgery (SDC) | payer MEDICARE, OTHER ==
[~2023-02-19 10:46] MED LIST changes: -Lidocaine 1%/Sod Bicarbonate in NS 8.4% 1 ML Syringe IDERM PRN; +Lidocaine 4% Crm 5 Gm with Transparent Dressing Kit TOP PRN; -Propofol 200 MG/20 ML SDV ONE; +Sodium Chloride 0.9% 10 ML Syringe FLUSH SCH; -fentaNYL 100 MCG/2 ML SDV ONE
[2023-02-19] MEDS ORDERED: Bupivacaine 0.5%/EPINEPHrine 1:200,000 50 ML MDV ONE (12:27)
[2023-02-19] MEDS ORDERED: Lidocaine 1% 4 ML ONE (12:30)
[2023-02-19] MEDS ORDERED: Propofol 200 MG/20 ML SDV ONE ×3 (12:30→13:20)
[2023-02-19] MEDS ORDERED: fentaNYL 100 MCG/2 ML SDV ONE (12:31)
[2023-02-19] MEDS ORDERED: ePHEDrine 50 MG/ML SDV ONE (12:57)
[2023-02-19 14:21] VITALS: BP 112/79; PULSE 70
== END 2023-02-19 14:40 | disposition home or self-care (01) ==
LOC: JD.SDS 10:46
PROVIDERS: ATTEND Surgery
DX: D12.2 Benign neoplasm of ascending colon (principal); D12.4 Benign neoplasm of descending colon; D12.3 Benign neoplasm of transverse colon; K29.50 Unspecified chronic gastritis without bleeding; K22.70 Barrett's esophagus without dysplasia; K29.80 Duodenitis without bleeding; K64.9 Unspecified hemorrhoids; L82.1 Other seborrheic keratosis; I10 Essential (primary) hypertension; D50.9 Iron deficiency anemia, unspecified; I25.10 Atherosclerotic heart disease of native coronary artery without angina pectoris; I25.83 Coronary atherosclerosis due to lipid rich plaque; J44.9 Chronic obstructive pulmonary disease, unspecified; E78.2 Mixed hyperlipidemia; I73.9 Peripheral vascular disease, unspecified; G62.9 Polyneuropathy, unspecified; D64.9 Anemia, unspecified; F17.290 Nicotine dependence, other tobacco product, uncomplicated; Z98.890 Other specified postprocedural states; Z79.899 Other long term (current) drug therapy; Z79.82 Long term (current) use of aspirin; Z95.5 Presence of coronary angioplasty implant and graft
CPT/HCPCS: 43239; J2704; J3010; J3490; J7120

== ENCOUNTER 2024-05-11 10:34 | Emergency (ER) | payer MEDICARE, OTHER ==
[2024-05-11 11:09] LABS: BASOPHILS ABSOLUTE AUTO 0.1 K/mm3 (0.0-0.2); BASOPHILS PERCENT AUTO 1.1 % (0.0-1.0); EOSINOPHILS ABSOLUTE AUTO 0.2 K/mm3 (0.0-0.4); EOSINOPHILS PERCENT AUTO 2.4 % (0.0-6.0); HEMATOCRIT 41.8 % (37.0-47.0); HEMOGLOBIN 13.8 gm/dl (12.0-16.0); IMMATURE GRAN ABSOLUTE AUTO 0.04 K/mm3 (0.00-0.05); IMMATURE GRAN PERCENT AUTO 0.5 % (0.0-0.4); LYMPHOCYTES ABSOLUTE AUTO 1.6 K/mm3 (1.0-4.8); LYMPHOCYTES PERCENT AUTO 21.8 % (24.0-44.0); MEAN CORPUSCULAR HEMOGLOBIN 29.8 pg (28.0-32.0); MEAN CORPUSCULAR VOLUME 90.3 fl (83.0-99.0); MEAN PLATELET VOLUME 10.7 fl (9.4-12.3); MONOCYTES ABSOLUTE AUTO 0.5 K/mm3 (0.0-0.8); MONOCYTES PERCENT AUTO 6.1 % (0.0-8.0); NEUTROPHILS PERCENT AUTO 68.1 % (41.0-71.0); PLATELET COUNT,PLT 207 K/mm3 (150-400); RED BLOOD CELL COUNT 4.63 M/mm3 (4.10-5.30)
[2024-05-11 11:25] LABS: A/G RATIO 1.2 (1-2); ANION GAP 14.3 (5-15); BILIRUBIN TOTAL 0.6 mg/dL (0.2-1.0); CALCIUM 9.6 mg/dL (8.5-10.1); EST CRCL DRUG DOSING (CG) 32.23 mL/min; POTASSIUM,K 4.3 mEq/L (3.5-5.1); PROTEIN TOTAL,TP 7.4 g/dl (6.4-8.2)
[2024-05-11] MEDS: Ondansetron 4 MG/2 ML SDV IVPUSH ONE (11:44)
[2024-05-11] MEDS: Sodium Chloride 0.9% 1,000 ML IV STA (11:44)
[2024-05-11] MEDS: HYDROmorphone 0.5 MG/0.5 ML Syringe IVPUSH ONE (11:44)
[2024-05-11] MEDS: Sodium Chloride 0.9% 10 ML Syringe FLUSH PRN (11:45)
[2024-05-11 13:12] LABS: APPEARANCE,URINE CLEAR (Clear); BILIRUBIN,URINE NEGATIVE (Negative); COLOR,URINE YELLOW (Yellow); GLUCOSE,URINE NEGATIVE (Negative); KETONES,URINE NEGATIVE (Negative); LEUKOCYTE ESTERASE,URINE NEGATIVE (Negative); NITRITE,URINE NEGATIVE (Negative); OCCULT BLOOD,URINE NEGATIVE (Negative); PROTEIN,URINE TRACE (Negative); UROBILINOGEN,URINE 0.2 (0.2-1.0)
[2024-05-11 13:22] LABS: BACTERIA,URINE FEW /hpf (FEW); MUCUS,URINE FEW /hpf (FEW); SQUAMOUS EPITHELIAL CELLS,UR 0-5 /hpf (0-5); WBC,URINE 0-5 /hpf (0-5)
[2024-05-11 14:11] VITALS: BP 150/76; PULSE 67
== END 2024-05-11 14:05 | disposition home or self-care (01) ==
LOC: JD.ED 10:34
DX: M54.50 Low back pain, unspecified (principal); I10 Essential (primary) hypertension; E78.00 Pure hypercholesterolemia, unspecified; J44.9 Chronic obstructive pulmonary disease, unspecified; Z86.16 Personal history of COVID-19; Z79.899 Other long term (current) drug therapy; Z79.82 Long term (current) use of aspirin; Z91.041 Radiographic dye allergy status
CPT/HCPCS: 36415; 74176; 80053; 81001; 83690; 85025; 96361; 96374; 96375; 99284; J1170; J2405; J3490; J7030

== ENCOUNTER 2025-04-14 10:12 | Emergency (ER) | payer MEDICARE, OTHER ==
[2025-04-14] MEDS: Ondansetron 4 MG/2 ML SDV IVPUSH ONE (10:55)
[2025-04-14] MEDS: Acetaminophen/HYDROcodone 325-5 MG Tab PO ONE (10:55)
[2025-04-14 11:17] LABS: BASOPHILS ABSOLUTE AUTO 0.1 K/mm3 (0.0-0.2); BASOPHILS PERCENT AUTO 1.0 % (0.0-1.0); EOSINOPHILS ABSOLUTE AUTO 0.2 K/mm3 (0.0-0.4); EOSINOPHILS PERCENT AUTO 1.2 % (0.0-6.0); IMMATURE GRAN ABSOLUTE AUTO 0.08 K/mm3 (0.00-0.05); IMMATURE GRAN PERCENT AUTO 0.6 % (0.0-0.4); LYMPHOCYTES ABSOLUTE AUTO 1.4 K/mm3 (1.0-4.8); LYMPHOCYTES PERCENT AUTO 11.3 % (24.0-44.0); MEAN PLATELET VOLUME 10.3 fl (9.4-12.3); MONOCYTES ABSOLUTE AUTO 0.5 K/mm3 (0.0-0.8); MONOCYTES PERCENT AUTO 3.9 % (0.0-8.0); NEUTROPHILS ABSOLUTE AUTO 10.1 K/mm3 (1.8-7.7); NEUTROPHILS PERCENT AUTO 82.0 % (41.0-71.0); NRBC ABSOLUTE 0.00 (0.00-0.02); NRBC PERCENT 0.0 % (0.0-0.2); PLATELET COUNT,PLT 203 K/mm3 (150-400); RED BLOOD CELL COUNT 4.77 M/mm3 (4.10-5.30); WHITE BLOOD CELL COUNT,WBC 12.35 K/mm3 (3.9-11.3)
[2025-04-14 11:38] LABS: A/G RATIO 1.2 (1-2); ALANINE AMINOTRANSFERASE,ALT 41 U/L (14-59); ASPARTATE AMNIOTRANSFERASE,AST 37 U/L (15-37); BILIRUBIN TOTAL 0.5 mg/dL (0.2-1.0); BLOOD UREA NITROGEN,BUN 17 mg/dL (7-18); CARBON DIOXIDE,CO2 26 mEq/L (21-32); CHLORIDE,CL 102 mEq/L (98-107); CREATINE KINASE,CK 75 U/L (26-192); CREATININE 1.0 mg/dL (0.55-1.02); ESTIMATED GFR 57 mL/min (>60); GLUCOSE RANDOM 117 mg/dL (70-99); POTASSIUM,K 3.8 mEq/L (3.5-5.1); PROTEIN TOTAL,TP 7.3 g/dl (6.4-8.2); SODIUM,NA 137 mEq/L (136-145)
[2025-04-14 13:36] LABS: APPEARANCE,URINE CLOUDY (Clear); GLUCOSE,URINE NEGATIVE (Negative); OCCULT BLOOD,URINE 1+ (Negative)
[2025-04-14] MEDS ORDERED: cefTRIAXone 1 GM, Lidocaine 1% 2.1 ML IM STA (13:38)
[2025-04-14 13:55] LABS: EPITHELIAL CELLS,URINE 0-5 /hpf (0-5)
[2025-04-14 14:15] VITALS: BP 109/44; PULSE 67
== END 2025-04-14 14:00 | disposition home or self-care (01) ==
LOC: JD.ED 10:12
DX: T83.511A Infection and inflammatory reaction due to indwelling urethral catheter, initial encounter (principal); M54.50 Low back pain, unspecified; E78.00 Pure hypercholesterolemia, unspecified; I10 Essential (primary) hypertension; Z86.16 Personal history of COVID-19; F17.210 Nicotine dependence, cigarettes, uncomplicated; Z88.5 Allergy status to narcotic agent; Z79.51 Long term (current) use of inhaled steroids; Z79.02 Long term (current) use of antithrombotics/antiplatelets; Z79.899 Other long term (current) drug therapy; Y84.6 Urinary catheterization as the cause of abnormal reaction of the patient, or of later complication, without mention of misadventure at the time of the procedure
CPT/HCPCS: 36415; 74176; 80053; 81001; 82550; 83690; 85025; 87086; 96361; 96374; 96375; 99284; A9270; J0696; J2405; J7030; 99283

== ENCOUNTER 2025-07-20 12:53 | Emergency (ER) | payer MEDICARE, OTHER ==
[2025-07-20] MEDS ORDERED: Sodium Chloride 0.9% 10 ML Syringe FLUSH PRN (13:13)
[2025-07-20 13:49] LABS: BASOPHILS ABSOLUTE AUTO 0.1 K/mm3 (0.0-0.2); BASOPHILS PERCENT AUTO 1.1 % (0.0-1.0); EOSINOPHILS ABSOLUTE AUTO 0.3 K/mm3 (0.0-0.4); EOSINOPHILS PERCENT AUTO 2.5 % (0.0-6.0); IMMATURE GRAN ABSOLUTE AUTO 0.04 K/mm3 (0.00-0.05); IMMATURE GRAN PERCENT AUTO 0.4 % (0.0-0.4); LYMPHOCYTES ABSOLUTE AUTO 2.2 K/mm3 (1.0-4.8); LYMPHOCYTES PERCENT AUTO 20.6 % (24.0-44.0); MEAN PLATELET VOLUME 10.5 fl (9.4-12.3); MONOCYTES ABSOLUTE AUTO 0.5 K/mm3 (0.0-0.8); MONOCYTES PERCENT AUTO 4.4 % (0.0-8.0); NEUTROPHILS ABSOLUTE AUTO 7.5 K/mm3 (1.8-7.7); NEUTROPHILS PERCENT AUTO 71.0 % (41.0-71.0); NRBC ABSOLUTE 0.00 (0.00-0.02); NRBC PERCENT 0.0 % (0.0-0.2); PLATELET COUNT,PLT 213 K/mm3 (150-400); RED BLOOD CELL COUNT 4.69 M/mm3 (4.10-5.30); WHITE BLOOD CELL COUNT,WBC 10.58 K/mm3 (3.9-11.3)
[2025-07-20 14:06] LABS: A/G RATIO 1.1 (1-2); ALANINE AMINOTRANSFERASE,ALT 32.0 U/L (14-59); ASPARTATE AMNIOTRANSFERASE,AST 29.0 U/L (15-37); BILIRUBIN TOTAL 0.4 mg/dL (0.2-1.0); BLOOD UREA NITROGEN,BUN 14.0 mg/dL (7-18); CARBON DIOXIDE,CO2 26.0 mEq/L (21-32); CHLORIDE,CL 103.0 mEq/L (98-107); CREATININE 1.0 mg/dL (0.55-1.02); EST CRCL DRUG DOSING (CG) 31.69 mL/min; ESTIMATED GFR 57.0 mL/min (>60); GLUCOSE RANDOM 104.0 mg/dL (70-99); POTASSIUM,K 3.5 mEq/L (3.5-5.1); PROTEIN TOTAL,TP 7.5 g/dl (6.4-8.2); SODIUM,NA 140.0 mEq/L (136-145)
[2025-07-20 14:21] LABS: APPEARANCE,URINE CLOUDY (Clear); GLUCOSE,URINE NEGATIVE (Negative); OCCULT BLOOD,URINE 1+ (Negative)
[2025-07-20] MEDS: Acetaminophen/HYDROcodone 325-5 MG Tab PO ONE (14:21)
[2025-07-20 14:31] LABS: EPITHELIAL CELLS,URINE 0-5 /hpf (0-5); WBC CLUMPS,URINE FEW /hpf (NOT SEEN)
[2025-07-20 15:07] VITALS: BP 164/97; PULSE 69
== END 2025-07-20 15:02 | disposition home or self-care (01) ==
LOC: JD.ED 12:53
DX: T83.511A Infection and inflammatory reaction due to indwelling urethral catheter, initial encounter (principal); I10 Essential (primary) hypertension; E78.00 Pure hypercholesterolemia, unspecified; J44.9 Chronic obstructive pulmonary disease, unspecified; F17.200 Nicotine dependence, unspecified, uncomplicated; Z91.041 Radiographic dye allergy status; Z79.02 Long term (current) use of antithrombotics/antiplatelets; Z79.899 Other long term (current) drug therapy; Z79.82 Long term (current) use of aspirin; Z86.16 Personal history of COVID-19
CPT/HCPCS: 36415; 80053; 81001; 85025; 86140; 87086; 99283; A9270